=== PATIENT | male | born 1965 | race African-American/Black ===

== ENCOUNTER 2016-12-06 18:29 | Inpatient (IN) ==
[2016-12-06] MEDS ORDERED: methylPREDNISolone SOD SUC 125 MG/2 ML VIAL IV STA (20:14)
[2016-12-06] MEDS ORDERED: cefTRIAXone 1,000 MG in SODIUM CHLORIDE 0.9% 100 ML IV STA (20:14)
[2016-12-06] MEDS ORDERED: FUROSEMIDE 100 MG/10 ML VIAL IV STA (20:14)
[2016-12-06] MEDS ORDERED: ALBUTEROL/IPRATROPIUM 3 ML NEB RESP TX STA (20:14)
[2016-12-06] MEDS ORDERED: PANTOPRAZOLE 40 MG VIAL IV STA (20:17)
[2016-12-06] MEDS ORDERED: ALUM/MAG/SIMETH/LIDO VISC 1:1 30 ML BOTTLE PO STA (20:17)
[2016-12-06] MEDS ORDERED: METOCLOPRAMIDE 10 MG/2 ML VIAL IV STA (20:17)
--- NOTE | 2016-12-06 20:22 | Emergency Department Note ---
Arrival - Arrival Chief Complaint: Shortness of Breath Stated Complaint: SOB/CHEST CRAMP/HX HEART ATTACK/STROKE ED Nursing Triage Note: C/O SOB WITH CHEST PAIN WITH ONSET 3 WEEKS AGO. Mode of Arrival: Ambulatory Limitations: No Limitations Source: Patient Time Seen by Provider: 12/06/16 20:14 - History of Present Illness HPI Narrative: This 50-year-old black male presents with a history of 3 weeks of persistent dyspnea at rest and on exertion associated with retrosternal tightness, and increased reflux symptoms. He denies chills, fever, purulence, diaphoresis, nausea, or vomiting. He does have a history of [place] with stents as well as congestive heart failure. Notable during the last 2 weeks has been increased complaints of orthopnea, PND, pedal edema, and intermittent chest pain. Currently he does not report any pain, just shortness of breath. Of note he does have asthmatic COPD and has been on inhalers in the past. Currently he appears in no medical distress. Onset (ago): week(s) (patient presents 3 weeks post-onset of symptoms.) Consistency: constant Severity: moderate Allergies/Adverse Reactions: Allergies Allergy/AdvReac Type Severity Reaction Status Date / Time No Known Allergies Allergy Unverified 12/06/16 18:41 Home Medications: Home Medications Medication Instructions Recorded Confirmed Type Amlodipine Besylate 5 mg PO DAILY 12/06/16 12/06/16 History Aspirin EC Tab 81 mg PO DAILY 12/06/16 12/06/16 History Carvedilol 25 mg PO DAILY 12/06/16 12/06/16 History Digoxin 250 mcg PO DAILY 12/06/16 12/06/16 History Furosemide Tab [Lasix Tab] 20 mg PO DAILY 12/06/16 12/06/16 History Gabapentin Cap/Tab [Neurontin 600 mg PO BEDTIME 12/06/16 12/06/16 History Cap/Tab] Levothyroxine Tab [Synthroid Tab] 50 mcg PO DAILY@0700 12/06/16 12/06/16 History Lisinopril 10 mg PO DAILY 12/06/16 12/06/16 History Nitroglycerin Sl Tab [Nitrostat] 0.4 mg SL Q5M PRN 12/06/16 12/06/16 History OLANZapine [Olanzapine] 5 mg PO BEDTIME 12/06/16 12/06/16 History OXcarbazepine [Oxcarbazepine] 300 mg PO BID 12/06/16 12/06/16 History Rosuvastatin [Crestor] 20 mg PO BEDTIME 12/06/16 12/06/16 History Warfarin Sodium 4 mg PO DAILY 12/06/16 12/06/16 History glipiZIDE [Glipizide] 10 mg PO BIDAC 12/06/16 12/06/16 History Review of System - Review of System 12 point system: reviewed and no additional remarkable complaints except as stated - Review of System Constitutional: Present: as per HPI Respiratory: Present: as per HPI Cardiovascular: Present: as per HPI Gastrointestinal: Present: as per HPI Medical,Surgical,& Family Hx - Medical History Cardio: History of: Hypertension, [place] Neurology: History of: Cerebrovascular Accident Endocrine: History of: Diabetes Mellitus (NIDDM) Respiratory: History of: COPD - Family History Family History: Reports;: Family Diabetes, Family Hypertension - Social History Smoking Status: Current every day smoker Frequency of Alcohol Use: None Type of Drug Use: None Exam Physical Examination: GENERAL: Well developed, well nourished black male in no acute distress. HEENT: Normocephalic. No trauma. Moist mucous membranes. EOMI. PERRLA. ENT clear NECK: Supple. No adenopathy. CARDIAC: Regular. No murmurs. Heart rate 76 CHEST: Clear to auscultation. No respiratory distress. O2 sat 92% ABDOMEN: Soft. Midepigastric tenderness. Active bowel sounds. EXTREMITIES: No trauma. Normal ROM. No pedal edema. SKIN: No diaphoresis. No rash. NEURO: Alert. Neuro intact No focal deficits. Vital Signs: Vital Signs Temperature 98.2 F 12/06/16 18:41 Pulse Rate 76 12/06/16 18:41 Respiratory Rate 20 12/06/16 20:03 Blood Pressure 178/94 12/06/16 18:41 O2 Sat by Pulse Oximetry 92 L 12/06/16 18:41 Course - Reevaluation(s) Reevaluation #1: I have advised the patient the need for hospitalization due to his abnormal cardiac enzymes and congestive failure - Consultations Consultation #1: Discussed with Dr. Seals, hospitalist, who will admit for further evaluation and treatment. Results - Labs CBC & BMP: 12/06/16 20:17 12/06/16 20:17 Labs: I've reviewed the laboratory noted the mild azotemia, abnormal troponin, abnormal total CPK, and greatly elevated BNP. - Impressions EKG sinus rhythm at 84, normal PA interval and QRS duration. Left atrial enlargement with right axis deviation, anterolateral ischemic STs. No acute injury pattern noted. - Diagnostic Findings Procedure: Chest x-ray: image reviewed by me, report reviewed by me (consistent with COPD) Disposition Clinical Impression: abnormal cardiac enzymes, congestive heart failure, COPD Case discussed with: patient Disposition: Still a Patient Condition: Guarded Time of Disposition: 21:53
[2016-12-06 20:27] LABS: Basophils % 0.3 % (0.0-0.8); Eosinophils # 0.7 10*3/uL (0.0-0.87); Hematocrit 50.5 VOL% (42.0-52.0); Immature Granulocytes % 0.1 %; Immature Granulocytes Absolute 0.01 #; Lymphocytes # 2.4 10*3/uL (1.4-4.0); Lymphocytes % 36.1 % (21.2-54.2); Mean Corpuscular HGB Conc 31.7 GM/DL (32-36); Mean Corpuscular Hemoglobin 30 PG (27-34); Mean Platelet Volume 9.6 FL (9.6-12.0); Monocytes # 0.5 10*3/uL (0.11-0.8); Monocytes % 7.6 % (1.7-12.7); Neutrophils % 44.9 % (38.7-73.9); Platelet Count 216 10*3/uL (130-400); Red Blood Count 5.26 10*6/uL (3.8-5.5); Red Cell Distribution Width 13.2 % (9.3-17.3); White Blood Count 6.7 10*3/uL (4.5-13.71)
[2016-12-06] MEDS ORDERED: PANTOPRAZOLE 40 MG VIAL IV ONE (20:29)
[2016-12-06] MEDS ORDERED: METOCLOPRAMIDE 10 MG/2 ML VIAL ONE (20:29)
[2016-12-06] MEDS ORDERED: SODIUM CHLORIDE 0.9% 100 ML IV ONE (20:30)
[2016-12-06] MEDS ORDERED: FUROSEMIDE 100 MG/10 ML VIAL ONE (20:30)
[2016-12-06] MEDS ORDERED: cefTRIAXone 1,000 MG VIAL ONE (20:30)
[2016-12-06] MEDS ORDERED: methylPREDNISolone SOD SUC 125 MG/2 ML VIAL ONE (20:30)
[2016-12-06] MEDS ORDERED: ALUM/MAG/SIMETH/LIDO VISC 1:1 30 ML BOTTLE PO ONE (20:30)
[2016-12-06 20:37] LABS: INR 1.1; PT Patient Result 11.6 SECS
[2016-12-06 20:45] LABS: Alanine Aminotransferase 21 U/L (16-61); Albumin 2.3 G/DL (3.4-5.0); Alkaline Phosphatase 119 U/L (45-117); Aspartate Amino Transferase 24 U/L (0-37); Bilirubin,Total < 0.39 MG/DL (0.2-1.0)
[2016-12-06 20:46] LABS: Blood Urea Nitrogen 21 MG/DL (7-18); Glucose 140 MG/DL (74-106); Potassium 3.9 MMOL/L (3.5-5.1); Sodium 143 MMOL/L (136-145); Troponin I Only 0.106 NG/ML (0.00-0.045)
[2016-12-06 20:50] LABS: Eosinophils 8 % (0-10); Lymphocytes 39 % (20-55); Segmented Neutrophils 45 % (50-85); Total Cells Counted 100
[2016-12-06 20:51] LABS: Platelet Estimate Normal
--- NOTE | 2016-12-06 21:09 | XRay Report ---
XR chest 1V portable Indication: Shortness of breath. Chest one view: No comparison. Heart size is normal. Mediastinal contours unremarkable. Scattered calcified granulomata are present. Diffuse interstitial prominence of the lungs noted, likely airways disease. Somewhat asymmetric hazy density right lung base appears present, especially when compared to the left. Impression: Underlying airways disease. Early right basilar pneumonia suspect but not definitive. Short-term followup recommended. PROCEDURE INTERPRETED AT [facility] DEPARTMENT OF RADIOLOGY Final Report Signed by: Dante Santos M.D.
[2016-12-06 22:02] LABS: Apearance,Urine CLEAR (Clear); Bilirubin,Urine Negative (Negative); Blood, Urine Small mg/dL (Negative); Glucose,Urine (UA) 50 mg/dL (Negative); Granular Casts,Urine 1 /LPF (0-1); Hyaline Casts,Urine 6 /LPF (0-3); Ketones,Urine Negative (Negative); Mucus,Urine Occasional /LPF (Occasional); Nitrite,Urine Negative (Negative); Protein,Urine >=500 MG/DL; RBC,Urine 2 /HPF (0-4); Urine Color Yellow (Yellow); Urine Specific Gravity 1.014 (1.001-1.035); WBC,Urine <1 /HPF (0-6)
[2016-12-06 22:05] LABS: Barbiturates Screen,Urine Negative (Negative); Benzodiazepines Screen,Urine Negative (Negative); Cannabinoid Screen,Urine Negative (Negative); Opiate Screen,Urine Negative (Negative); Phencyclidine Screen,Urine Negative (Negative)
--- NOTE | 2016-12-06 22:41 | Hospitalist History & Physical ---
Assessment and Plan (1) Chest pain Status: Acute Current Visit: Yes (2) Acute exacerbation of congestive heart failure Status: Acute Current Visit: Yes (3) History of peripheral vascular disease Status: Acute Current Visit: Yes (4) History of COPD Status: Acute Current Visit: Yes (5) Diabetes Status: Acute Current Visit: Yes (6) History of [place] (myocardial infarction) Status: Acute Current Visit: Yes (7) History of stroke Status: Acute Current Visit: Yes (8) mild bump in troponins Status: Acute Assessment and plan: Plan for this patient #1 admit the patient our service #2 telemetry monitoring #3 serial cardiac enzymes #4 continue home meds as appropriate #5 2-D echo #6 cardiology consult #7 diuresis #8 monitor kidney function Current Visit: Yes History of Present Illness Chief complaint: Shortness of breath and chest tightness History of present illness: Mr. Godwin is a 51 year old male past medical history significant for congestive heart failure, coronary artery disease, [place] about 10 years ago, stroke , hypertension, diabetes, peripheral vascular disease, and COPD he's been experiencing shortness of breath and chest tightness time 3 weeks. He noticed that this shortness of breath and chest tightness comes on when he exerts himself. Says when just gives out on him. Patient also noted some radiation of the pain to his neck. And he's had some numbness sensation bilaterally in his fingertips when this comes on. Patient started noticing increased swelling in his lower extremities. Patient had a sense that something was going to happen to him so he got his friend bring him up to the emergency room. Patient doesn't really know what's going on with him thought he might be experiencing indigestion and he wanted to be checked out. He had a mild bump in his troponin and elevated BNP and I was consulted to admit him Home Medications Medication Instructions Recorded Confirmed Type Amlodipine Besylate 5 mg PO DAILY 12/06/16 12/06/16 History Aspirin EC Tab 81 mg PO DAILY 12/06/16 12/06/16 History Carvedilol 25 mg PO DAILY 12/06/16 12/06/16 History Digoxin 250 mcg PO DAILY 12/06/16 12/06/16 History Furosemide Tab [Lasix Tab] 20 mg PO DAILY 12/06/16 12/06/16 History Gabapentin Cap/Tab [Neurontin 600 mg PO BEDTIME 12/06/16 12/06/16 History Cap/Tab] Levothyroxine Tab [Synthroid Tab] 50 mcg PO DAILY@0700 12/06/16 12/06/16 History Lisinopril 10 mg PO DAILY 12/06/16 12/06/16 History Nitroglycerin Sl Tab [Nitrostat] 0.4 mg SL Q5M PRN 12/06/16 12/06/16 History OLANZapine [Olanzapine] 5 mg PO BEDTIME 12/06/16 12/06/16 History OXcarbazepine [Oxcarbazepine] 300 mg PO BID 12/06/16 12/06/16 History Rosuvastatin [Crestor] 20 mg PO BEDTIME 12/06/16 12/06/16 History Warfarin Sodium 4 mg PO DAILY 12/06/16 12/06/16 History glipiZIDE [Glipizide] 10 mg PO BIDAC 12/06/16 12/06/16 History Allergies Allergy/AdvReac Type Severity Reaction Status Date / Time No Known Allergies Allergy Unverified 12/06/16 18:41 Medical,Surgical,& Family Hx - Medical History Cardio: History of: CHF, Hypertension, [place] Neurology: History of: Cerebrovascular Accident Endocrine: History of: Diabetes Mellitus (NIDDM) Respiratory: History of: COPD - Surgical History Additional Surgical History: Patient's had some unspecified vein surgery he's had stents placed and he had a cyst removed from his Botox - Family History Family History: Reports;: Family Diabetes, Family Hypertension - Social History Smoking Status: Current every day smoker Frequency of Alcohol Use: None Type of Drug Use: None 12 point system: reviewed and no additional remarkable complaints except as stated Exam - Constitutional Vitals: Period Temp Pulse Resp BP Sys/[place] Pulse Ox Last 24 Hr 98.2 F 76 18-20 178/94 92 General appearance: over weight - Head Head exam: Present: normal inspection - Eye Eye exam: Present: EOMI Pupils: Present: KATIE - ENT ENT exam: Present: other (poor dentition) - Respiratory Respiratory exam: Present: rales (mild) - Cardiovascular Cardiovascular exam: Present: regular rate and rhythm - GI/Abdominal GI/Abdominal exam: Present: normal bowel sounds - Extremities Exam Extremities exam: Present: edema - Back Exam Back exam: Present: normal inspection - Neurological Exam Neurological exam: Present: alert, oriented X3 - Psychiatric Psychiatric exam: Present: normal affect, normal mood - Skin Skin exam: Present: normal color Results - Labs CBC & BMP: 12/06/16 20:17 12/06/16 20:17
[2016-12-06] MEDS ORDERED: GLUCAGON 1 MG VIAL IM PRN (23:03)
[2016-12-06] MEDS ORDERED: MAGNESIUM SULF RIDER 4 GM in PREMIX 1 EACH IV PRN (23:03)
[2016-12-06] MEDS ORDERED: DEXTROSE 50% 25 GM/50 ML VIAL IV PRN (23:03)
[2016-12-06] MEDS ORDERED: MAGNESIUM SULF RIDER 2 GM in PREMIX 1 EACH IV PRN (23:03)
[2016-12-06] MEDS ORDERED: ALBUTEROL/IPRATROPIUM 3 ML NEB RESP TX PRN (23:03)
[2016-12-06] MEDS ORDERED: ONDANSETRON 4 MG/2 ML VIAL IV PRN (23:03)
[2016-12-06] MEDS ORDERED: INSULIN REGULAR 100 UNIT/ML SUBCUT ONE (23:03)
[2016-12-06] MEDS ORDERED: POTASSIUM CHLORIDE RIDER 10 MEQ in PREMIX 1 EACH IV PRN (23:03)
[2016-12-06] MEDS ORDERED: AZITHROMYCIN INJ 500 MG in SODIUM CHLORIDE 0.9% 250 ML IV SCH (23:30)
[2016-12-07] MEDS: ENOXAPARIN 40 MG/0.4 ML SYRINGE SUBCUT SCH (01:12)
[2016-12-07] MEDS: AZITHROMYCIN INJ 500 MG in SODIUM CHLORIDE 0.9% 250 ML IV SCH (01:13)
[2016-12-07] MEDS: NITROGLYCERIN 2% OINT 1 INCH/GM PACK TOP SCH ×4 (01:13→18:12)
[2016-12-07 02:25] LABS: Basophils % 0.3 % (0.0-0.8); Eosinophils % 0.5 % (0.00-10.9); Hematocrit 47.9 VOL% (42.0-52.0); Hemoglobin 15.4 GM/DL (14.0-18.0); Immature Granulocytes % 0.3 %; Immature Granulocytes Absolute 0.02 #; Lymphocytes # 0.7 10*3/uL (1.4-4.0); Lymphocytes % 11.3 % (21.2-54.2); Mean Corpuscular HGB Conc 32.2 GM/DL (32-36); Mean Corpuscular Hemoglobin 30 PG (27-34); Mean Corpuscular Volume 94.3 FL (87-102); Mean Platelet Volume 9.9 FL (9.6-12.0); Monocytes # 0.1 10*3/uL (0.11-0.8); Monocytes % 1.4 % (1.7-12.7); Neutrophils % 86.2 % (38.7-73.9); Platelet Count 197 10*3/uL (130-400); Red Blood Count 5.08 10*6/uL (3.8-5.5); White Blood Count 5.8 10*3/uL (4.5-13.71)
[2016-12-07 02:45] LABS: INR 1.1; PT Patient Result 12.2 SECS
[2016-12-07 03:03] LABS: Calcium 7.7 MG/DL (8.5-10.1); Osmolality,Calculated 294.8 MOS/KG (273-304); Risk Ratio 3.64; VLDL CHOLESTEROL 21.4 MG/DL
[2016-12-07 03:28] LABS: Troponin I Only 0.089 NG/ML (0.00-0.045)
--- NOTE | 2016-12-07 06:02 | EKG Report ---
Stationary ECG Study [facility] ER Test Date: 12/06/2016 6:43:52 PM Pat Name: LIYAH CRUZ Department: Room: 295 Gender: M Steeple Jack: Gopi : 1965 Requested by: Todd Chandra Order Number: [id number] Reading MD: ABDIRIZAK SAUNDERS Intervals [place] Rate: 84 P: 87 NE: 181 QRS: 103 QRSD: 100 T: 78 QT: 333 QTc: 374 Interpretive Statements SINUS RHYTHM POSSIBLE LEFT ATRIAL ENLARGEMENT ABNORMAL RIGHT AXIS DEVIATION Electronically Signed On 12-07-16 12:32:42 STITCHER SET UP OPERATOR AUTOMATIC by ABDIRIZAK SAUNDERS [email or web address]
--- NOTE | 2016-12-07 07:51 | EKG Report ---
Stationary ECG Study [facility] Test Date: 12/07/2016 7:49:36 AM Pat Name: LIYAH CRUZ Department: Room: 295 Gender: M Plumber Cub: : 1965 Requested by: Dante Taveras Order Number: [id number] Reading MD: ABDIRIZAK SAUNDERS Intervals [place] Rate: 86 P: 76 [place]: 202 QRS: 110 QRSD: 104 T: 13 QT: 386 QTc: 429 Interpretive Statements SINUS RHYTHM POSSIBLE LEFT ATRIAL ENLARGEMENT MARKED RIGHT AXIS DEVIATION PATTERN CONSISTENT WITH PULMONARY DISEASE Electronically Signed On 12-07-16 12:37:27 COMPLIANCE EXAMINER by ABDIRIZAK SAUNDERS [email or web address]
[2016-12-07 08:13] LABS: Troponin I Only 0.076 NG/ML (0.00-0.045)
--- NOTE | 2016-12-07 08:40 | Cardiology Consult Note ---
<Karin Márquez E - Last Filed: 12/07/16 08:23> Assessment and Plan - Time spent with patient Time spent with patient: Greater than 30 minutes (1) SOB (shortness of breath) Status: Acute Assessment and plan: See plan of care Current Visit: Yes (2) Chest pain Status: Acute Assessment and plan: See plan of care Current Visit: Yes (3) Hypertension Status: Chronic Assessment and plan: See plan of care Current Visit: Yes (4) Dyslipidemia Status: Chronic Assessment and plan: See plan of care Current Visit: Yes (5) CAD (coronary artery disease) Status: Chronic Assessment and plan: See plan of care listed above Current Visit: Yes (6) Abdominal pulsatile mass Status: Acute Assessment and plan: See plan of care listed above Current Visit: Yes (7) Carotid bruit Status: Acute Assessment and plan: See plan of care listed above Current Visit: Yes Qualifiers: Laterality: bilateral Qualified Code(s): R09.89 - Other specified symptoms and signs involving the circulatory and respiratory systems (8) Tobacco abuse Status: Chronic Assessment and plan: See plan of care listed above Current Visit: Yes (9) Pneumonia Status: Acute Assessment and plan: See plan of care listed above Current Visit: Yes (10) Cardiac enzymes elevated Status: Acute Assessment and plan: See plan of care listed above Current Visit: Yes (11) Diabetes Status: Chronic Assessment and plan: See plan of care listed above Current Visit: Yes (12) History of stroke Status: Chronic Assessment and plan: See plan of care listed above Current Visit: Yes History of Present Illness - Data of Consult Patient: new to practice Consult date: 12/07/16 Requesting Physician: Marysol Craig Primary care physician: Niki Georges - Consult Narrative Reason for consult: chest tightness, SOB, elevated trop History of present illness: Mr. Godwin is a 51 year old AA male who is not followed by cardiology. Risk factors include: known coronary artery disease, hypertension, dyslipidemia, diabetes, PVD, obesity, sedentary lifestyle, tobaccoism. He tells me in a myocardial infarction approximately 10 years ago requiring balloon angioplasty. He tells me he has been told in the past he has a weak heart. He does not see cardiology routinely. He previously saw a heater operator [place] of state but has not followed up in many years. Over the past week, patient's shortness of breath has worsened at rest and with exertion. He has noticed a dry hacking cough and denies fevers or chills. When he exerts himself he feels a tightness laterally across his chest and this started approximately 48 hours ago. He is unable to rate the tightness on a scale of 1-10. Rest relieves the tightness. There is no nausea or vomiting associated with this discomfort. He is currently chest pain-free. He's been diagnosed with right lobe pneumonia. This is being addressed by his primary care provider. His cardiac biomarkers reveal elevation of troponin at 0.106, CPK and MB are mildly elevated as well. He is chest pain-free. EKG is abnormal though does not reflect STEMI. Patient reports he takes Coumadin and he believes is for an irregular heart rhythm. ANDRE Georges monitors his INR. It does not sound as if he has this checked routinely however. INR 1.1 today. Approximately 7 or 8 years ago he had left carotid endarterectomy. He suffered a stroke prior to CEA. He's also had some type of a peripheral vascular surgery to his lower extremities in the past for suspected PVD. He has recurrent claudication at 60 feet. Right lower extremity worse than left lower extremity. He also has renal insufficiency. Creatinine on admission was 2.2 and this morning it is 2.0. He tells me he did have some type of damage to the right kidney in years past. ASSESSMENT/PLAN: 1. SOB - shortness of breath is multifactorial in nature. Certainly, patient may be short of breath from his suspected pneumonia. His cardiac biomarkers are elevated in a fashion that this may represent a NSTEMI, also contributing to shortness of breath. He may have a cardiomyopathy. Echocardiogram is been ordered. Upon admission, he tells me he was orthopneic and this has dramatically improved overnight. He admits to frequent diuresis since admission. He is uncertain if he could lay flat for 4-6 hours at this time and will keep diuresing. 2. CHEST PAIN - chest tightness occurs with exertion and is relieved with rest. Patient has a history of known coronary artery disease. Stay be an anginal equivalent 3. ELEVATED CARDIAC BIOMARKERS - Suspicious for NSTEMI. Abnormal EKG noted. Has received ASA, Lovenox, betablockers. Also receiving nitroglycerine paste routinely. 4. HYPERTENSION - suboptimally controlled at this time. Will adjust medications accordingly. 5. DYSLIPIDEMIA - continue lipid-lowering agent. Fasting lipid profile. 6. CAD - history of coronary artery disease and possibly UT approximately 10 years ago. Sounds as if he received POBA Without stenting per patient report 7. PVD - decrease pulses BLE, history of BLE intervention in the past 8. ABDOMINAL PULSATILE MASS - US to eval 9. SUSPECTED PNEUMONIA - currently on appropriate antibiotics 10. CKD - Class III. Will add mucomyst to med regimen in anticipation of possible LHC 11. TOBACCOISM - greater than 5 minutes was spent discussing the merits of tobacco cessation 12. POSSIBLE HISTORY OF ATRIAL FLUTTER - patient was taking Coumadin that his INR was 1.1. Upon interview, does not sound as if he is also routinely with ANDRE Georges for monthly INRs. We'll continue to monitor his rhythm while hospitalized. 13. CAROTID BRUIT, LEFT - US to evaluate CC: Marysol Craig MD - Home Medications and Allergies Home Medications: Home Medications Medication Instructions Recorded Confirmed Type Amlodipine Besylate 5 mg PO DAILY 12/06/16 12/06/16 History Aspirin EC Tab 81 mg PO DAILY 12/06/16 12/06/16 History Carvedilol 25 mg PO DAILY 12/06/16 12/06/16 History Digoxin 250 mcg PO DAILY 12/06/16 12/06/16 History Furosemide Tab [Lasix Tab] 20 mg PO DAILY 12/06/16 12/06/16 History Gabapentin Cap/Tab [Neurontin 600 mg PO BEDTIME 12/06/16 12/06/16 History Cap/Tab] Levothyroxine Tab [Synthroid Tab] 50 mcg PO DAILY@0700 12/06/16 12/06/16 History Lisinopril 10 mg PO DAILY 12/06/16 12/06/16 History Nitroglycerin Sl Tab [Nitrostat] 0.4 mg SL Q5M PRN 12/06/16 12/06/16 History OLANZapine [Olanzapine] 5 mg PO BEDTIME 12/06/16 12/06/16 History OXcarbazepine [Oxcarbazepine] 300 mg PO BID 12/06/16 12/06/16 History Rosuvastatin [Crestor] 20 mg PO BEDTIME 12/06/16 12/06/16 History Warfarin Sodium 4 mg PO DAILY 12/06/16 12/06/16 History glipiZIDE [Glipizide] 10 mg PO BIDAC 12/06/16 12/06/16 History Insulin Glargine,Hum.[email or web address] See Protocol 12/07/16 History [Lantus SoloStar] Tiotropium Inhalation [Spiriva SUBCUT 12/07/16 History Handihaler] Allergies/Adverse Reactions: Allergies Allergy/AdvReac Type Severity Reaction Status Date / Time No Known Allergies Allergy Unverified 12/06/16 18:41 Review of systems: REVIEW OF SYSTEMS: - Constitutional Constitutional: Present: Fatigue. Absent: syncope, anorexia, night sweats - EENT Eyes: Absent: blurry vision, loss of vision, diplopia Ears: Absent: decreased hearing, ear pain, ear discharge - Cardiovascular Cardiovascular: Present: chest tightness with exertion, dyspnea on exertion and at rest. Frequent bilateral lower extremity edema, mild. Occasional palpitations. Claudication bilateral lower extremities and 60 feet with right lower extremity be more severe than left. - Respiratory Respiratory: Present: SANDERSON, cough. Absent: wheezing, hemoptysis, change in phlegm color - Gastrointestinal Gastrointestinal: Denies constipation. Absent: abdominal pain, hematemesis, hematochezia, melena, change in bowel habits, nausea - Genitourinary Genitourinary: Absent: difficulty urinating, dysuria, urinary hesitancy, flank pain - Musculoskeletal Musculoskeletal: Present: back pain Absent: joint swelling, muscle cramps, muscle weakness - Neurological Neurological: Present: normal gait without frequent falls. Absent: dizziness, hemiparesis - Psychiatric Psychiatric: Absent: anxiety, depression, difficulty concentrating - Endocrine Endocrine: Present: fatigue. Absent: cold intolerance, heat intolerance, polyuria, polyphagia, polydipsia - Hematologic/Lymphatic Hematologic/Lymphatic: Present: easy bruising. Absent: easy bleeding -Integumentary Integumentary: Absent: lesions, rashes, skin breakdown Medical,Surgical,& Family Hx - Medical History Cardio: History of: CHF, CAD, Hypertension, UT, PVD Neurology: History of: Cerebrovascular Accident Endocrine: History of: Diabetes Mellitus (NIDDM) Respiratory: History of: COPD - Surgical History HEENT Surgeries: Surgical HX of: Carotid Endarterectomy (left) - Family History Family History: Reports;: Family Diabetes, Family Hypertension - Social History Smoking Status: Current every day smoker Frequency of Alcohol Use: None Type of Drug Use: None Physical Examination Vital Signs Temp Pulse Resp BP Pulse Ox 98.2 F 76 18 178/94 92 L 12/06/16 18:41 12/06/16 18:41 12/06/16 18:41 12/06/16 18:41 12/06/16 18:41 General: Appears well with no apparent distress. Pleasant and cooperative. Appears comfortable. HEENT: PERRL, normocephalic, atraumatic. Mucous membranes moist. No jaundice noted. Conjunctiva moist and clear, sclerae anicteric Neck: No JVD/HJR, no thyromegaly or lymphadenopathy noted. Bilateral carotid bruits. Left carotid endarterectomy incision. Cardiac: Regular rate and rhythm. Soft II/ HSM heard best at 5ICS left. Lungs: Inspiratory crackles noted posteriorly in bases, improve but persist with cough. No use of accessory muscle use to assist the respiratory pattern. Using oxygen intermittently. Abdomen: Soft, bowel sounds normoactive. Nontender and nondistended. Abdominal pulsation bruit. Musculoskeletal: No fluid collection. Decreased range of motion is noted. Extremities: No clubbing, cyanosis noted. Trace ankle edema bilaterally. Difficult to palpate pulses of lower extremities, feet warm. Capillary refill less than 3 seconds. Skin: No unusual lesions or rashes. No skin breakdown appreciated. Neuro: Awake, alert and oriented 3. Moves all extremities well without hemiparesis or paralysis. No essential tremor is appreciated. Result/EKG - Labs CBC & BMP: 12/07/16 02:07 12/07/16 02:07 Lab Results: I have reviewed the past 24 hour labs Labs: Laboratory Results - last 24 hr 12/07/16 12/07/16 12/07/16 02:07 02:07 02:07 WBC 5.8 RBC 5.08 Hgb 15.4 Hct 47.9 MCV 94.3 MCH 30 MCHC 32.2 RDW 13.0 Plt Count 197 MPV 9.9 Neut % (Auto) 86.2 H Lymph % (Auto) 11.3 L Estill % (Auto) 1.4 L Eos % (Auto) 0.5 Baso % (Auto) 0.3 Neut # (Auto) 5.0 Lymph # (Auto) 0.7 L [place] # (Auto) 0.1 L Eos # (Auto) 0.0 Baso # (Auto) 0.0 Immature Gran % 0.3 Nucleated RBC % 0.0 Immature Gran # 0.02 Nucleated RBCs # 0.00 INR 1.1 PT Patient/Control Mix 12.2 Sodium Potassium Chloride Carbon Dioxide Anion Gap BUN Creatinine GFR Calculation BUN/Creatinine Ratio Glucose POC Glucose Calculated Osmolality Calcium Total Creatine Kinase 297 CK-MB (CK-2) 3.7 H Troponin I 0.089 H Triglycerides Cholesterol LDL Cholesterol VLDL Cholesterol HDL Cholesterol Heart Disease Risk Ratio 12/07/16 12/07/16 12/07/16 02:07 07:16 07:22 WBC RBC Hgb Hct MCV MCH MCHC RDW Plt Count MPV Neut % (Auto) Lymph % (Auto) Estill % (Auto) Eos % (Auto) Baso % (Auto) Neut # (Auto) Lymph # (Auto) Est[place] # (Auto) Eos # (Auto) Baso # (Auto) Immature Gran % Nucleated RBC % Immature Gran # Nucleated RBCs # INR PT Patient/Control Mix Sodium 144 Potassium 4.0 Chloride 104 Carbon Dioxide 30 Anion Gap 14.0 BUN 20 H Creatinine 2.00 H GFR Calculation 50 BUN/Creatinine Ratio 10.00 Glucose 204 H POC Glucose 208 H Calculated Osmolality 294.8 Calcium 7.7 L Total Creatine Kinase 292 CK-MB (CK-2) 3.9 H Troponin I 0.076 H Triglycerides 107 Cholesterol 182 LDL Cholesterol 105.0 VLDL Cholesterol 21.4 HDL Cholesterol 50 Heart Disease Risk Ratio 3.64 - Diagnostic Findings Procedure: Chest x-ray: report reviewed by nh - EKG EKG results: interpreted by nh EKG shows: sinus rhythm <Julian Jara - Last Filed: 12/07/16 09:18> History of Present Illness - Consult Narrative History of present illness: Patient examined, chart and lab data reviewed. 51-year-old man admitted with CHF and right lower lobe pneumonia. He has been short of breath for 3 weeks. Status post angioplasty 10 years ago at [facility]. He has had no nuclear stress test since that time. Multiple risk factors for progressive CAD Smoker Chronic renal insufficiency creatinine 2.0 Plan Carotid duplex echo Doppler and abdominal sonogram Pulmonary toilet IV antibiotics and IV Lasix Heart cath when able. CC: Marysol Craig MD Physical Examination Vital Signs Temp Pulse Resp BP Pulse Ox 98.2 F 76 18 178/94 92 L 12/06/16 18:41 12/06/16 18:41 12/06/16 18:41 12/06/16 18:41 12/06/16 18:41 Result/EKG - Labs CBC & BMP: 12/07/16 02:07 12/07/16 02:07 Labs: Laboratory Results - last 24 hr 12/07/16 12/07/16 12/07/16 02:07 02:07 02:07 WBC 5.8 RBC 5.08 Hgb 15.4 Hct 47.9 MCV 94.3 MCH 30 MCHC 32.2 RDW 13.0 Plt Count 197 MPV 9.9 Neut % (Auto) 86.2 H Lymph % (Auto) 11.3 L Est[place] % (Auto) 1.4 L Eos % (Auto) 0.5 Baso % (Auto) 0.3 Neut # (Auto) 5.0 Lymph # (Auto) 0.7 L [place] # (Auto) 0.1 L Eos # (Auto) 0.0 Baso # (Auto) 0.0 Immature Gran % 0.3 Nucleated RBC % 0.0 Immature Gran # 0.02 Nucleated RBCs # 0.00 INR 1.1 PT Patient/Control Mix 12.2 Sodium Potassium Chloride Carbon Dioxide Anion Gap BUN Creatinine GFR Calculation BUN/Creatinine Ratio Glucose POC Glucose Calculated Osmolality Calcium Total Creatine Kinase 297 CK-MB (CK-2) 3.7 H Troponin I 0.089 H Triglycerides Cholesterol LDL Cholesterol VLDL Cholesterol HDL Cholesterol Heart Disease Risk Ratio 12/07/16 12/07/16 12/07/16 02:07 07:16 07:22 WBC RBC Hgb Hct MCV MCH MCHC RDW Plt Count MPV Neut % (Auto) Lymph % (Auto) Estill % (Auto) Eos % (Auto) Baso % (Auto) Neut # (Auto) Lymph # (Auto) [place] # (Auto) Eos # (Auto) Baso # (Auto) Immature Gran % Nucleated RBC % Immature Gran # Nucleated RBCs # INR PT Patient/Control Mix Sodium 144 Potassium 4.0 Chloride 104 Carbon Dioxide 30 Anion Gap 14.0 BUN 20 H Creatinine 2.00 H GFR Calculation 50 BUN/Creatinine Ratio 10.00 Glucose 204 H POC Glucose 208 H Calculated Osmolality 294.8 Calcium 7.7 L Total Creatine Kinase 292 CK-MB (CK-2) 3.9 H Troponin I 0.076 H Triglycerides 107 Cholesterol 182 LDL Cholesterol 105.0 VLDL Cholesterol 21.4 HDL Cholesterol 50 Heart Disease Risk Ratio 3.64
[2016-12-07] MEDS: FUROSEMIDE 40 MG/4 ML VIAL IV SCH ×2 (08:48→16:46)
[2016-12-07] MEDS ORDERED: ASPIRIN EC 325 MG TABLET PO SCH (09:00)
[2016-12-07] MEDS: INSULIN REGULAR 100 UNIT/ML SUBCUT SCH ×4 (10:18→21:56)
[2016-12-07] MEDS: DIGOXIN 0.25 MG TABLET PO SCH (10:19)
[2016-12-07] MEDS: ACETYLCYSTEINE 600 MG CAPSULE PO SCH ×2 (10:19→21:54)
[2016-12-07] MEDS: OXcarbazepine 300 MG TABLET PO SCH ×2 (10:20→21:54)
[2016-12-07] MEDS: ASPIRIN EC 81 MG TABLET PO SCH (10:20)
[2016-12-07] MEDS: amLODIPine 5 MG TABLET PO SCH (10:20)
[2016-12-07] MEDS: LEVOTHYROXINE 50 MCG TABLET PO SCH (10:20)
[2016-12-07] MEDS: LISINOPRIL 10 MG TABLET PO SCH (10:20)
[2016-12-07] MEDS: CARVEDILOL 25 MG TABLET PO SCH (10:20)
--- NOTE | 2016-12-07 11:35 | Ultrasound Report ---
Referring physician: Marysol Meehan MD Exam: Carotid ultrasound Date: December 07, 2016 Comparison: None Reason: Bilateral carotid bruits and history of left endarterectomy Technique: Duplex scan of the carotid arteries performed using B-Mode/grayscale imaging and Doppler spectral analysis and color flow. Ultrasound images were captured and stored. Findings: There is mild heterogeneous plaque at the carotid bifurcations. The right ICA measures 0.56 cm in diameter, and the left ICA measures 0.40 cm in diameter. The peak systolic velocities are as follows: Right CCA: 73 cm/s Right proximal ICA: 47 cm/s Right distal ICA: 76 cm/s Right ECA: 93 cm/s Left CCA: 79 cm/s Left proximal ICA: 56 cm/s Left distal ICA: 61 cm/s Left ECA: 144 cm/s The peak systolic ICA/CCA velocity ratios are as follows: 1.0 on the right and 0.8 on the left. Antegrade flow is present within both vertebral arteries. Impression: 1. Less than 50% stenosis of both cervical internal carotid arteries. 2. The Society of Radiologists in Ultrasound consensus conference criteria was used. The Ultrasound images were captured and stored. PROCEDURE INTERPRETED AT [facility] DEPARTMENT OF RADIOLOGY Final Report Signed by: Dr. Chad Calloway
--- NOTE | 2016-12-07 11:48 | Ultrasound Report ---
Referring Physician: Karin Márquez Exam: US abdomen Date: December 07, 2016 Reason: Abdominal pulsatile mass Comparison: None Technique: Grayscale ultrasound images of the abdomen were obtained. Ultrasound images were captured and stored. Findings: The liver measures 15.6 cm in length. No suspicious hepatic lesion is identified. No gallstones are seen. No abnormal gallbladder wall thickening or pericholecystic fluid is identified. The inspector eyeglass reports a negative sonographic Vargas's sign. The common bile duct is upper normal in size, measuring 0.3-0.5 cm in diameter. The visualized pancreas is unremarkable. The right kidney measures 11.6 x 5.5 x 5.2 cm, and the left kidney measures 10.8 x 6.5 x 5.7 cm. No hydronephrosis or suspicious renal lesion is identified. The spleen measures 6.4 x 6.1 x 5.3 cm. Splenic volume is approximately 300 cc. No ascites is seen, and the visualized IVC appears patent. The visualized abdominal aorta is normal in size, measuring up to 2.2 cm. The main portal vein appears patent. Impression: No acute abdominal process is identified. PROCEDURE INTERPRETED AT [facility] DEPARTMENT OF RADIOLOGY Final Report Signed by: Dr. Chad Calloway
--- NOTE | 2016-12-07 15:42 | ECHO Report ---
Bulmaro Godwin Exam Date: 12/07/2016 08:48 Referring Physician: Technologist: Macy Hutchins RDCS Age: 51 Ht (in): Wt (lb): Gender: M Exam Location: [facility] Echo Indications: Dyspnea, unspecified, Essential (primary) hypertension, Chest pain, unspecified, Chronic kidney disease, stage 3 (moderate), Dyslipidemia, CAD, Nicotine dependence, unspecified, uncomplicated, Pneumonia, Elevated cardiac enzymes, hx CVA, Diabetes BP: / HR: Rhythm: Sinus Technical Quality: Good IMPRESSIONS EF 30 %, moderate global hypokinesis. Grade I/IV diastolic dysfunction (abnormal relaxation filling pattern), normal to mildly elevated filling pressures. The right ventricle is normal in size and function. The right atrium is mildly enlarged. The left atrium is mildly enlarged. Mildly thickened mitral valve. Trace mitral valve regurgitation. Aortic valve sclerosis. No aortic valve regurgitation. Severe tricuspid valve regurgitation. PAP 60 mmHg. Normal pericardium without effusion. Normal ascending aorta dimension. MEASUREMENTS (Male / Female) Normal Values 2D ECHO LV Diastolic Diameter PLAX 5.4 cm 4.2 - 5.9 / 3.9 - 5.3 cm LV Systolic Diameter PLAX 4.6 cm LV Fractional Shortening PLAX 14.7 % IVS Diastolic Thickness 1.2 cm 0.6 - 1.0 / 0.6 - 0.9 cm LVPW Diastolic Thickness 1.2 cm 0.6 - 1.0 / 0.6 - 0.9 cm RV Internal Dim ED PLAX 3.7 cm Aortic Root Diameter 2.8 cm LA Systolic Diameter LX 4.6 cm 3.0 - 4.0 / 2.7 - 3.8 cm DOPPLER TR Peak Velocity 343.0 cm/s TR Peak Gradient 47.1 mmHg FINDINGS Left Ventricle EF 30 %, moderate global hypokinesis.Grade I/IV diastolic dysfunction (abnormal relaxation filling pattern), normal to mildly elevated filling pressures. Right Ventricle The right ventricle is normal in size and function. Right Atrium The right atrium is mildly enlarged. Left Atrium The left atrium is mildly enlarged. Mitral Valve Mildly thickened mitral valve. Trace mitral valve regurgitation. Aortic Valve Aortic valve sclerosis. No aortic valve regurgitation. Tricuspid Valve Morphologically normal tricuspid valve. Severe tricuspid valve regurgitation. PAP 60 mmHg. Pulmonic Valve Pulmonic valve not well visualized. Pericardium Normal pericardium without effusion. Aorta Normal ascending aorta dimension. Brendon Plavac (Electronically Signed) Final Date: 07 December 2016 15:40
[2016-12-07] MEDS ORDERED: WARFARIN 4 MG TABLET PO SCH (18:00)
--- NOTE | 2016-12-07 18:27 | Hospitalist Progress Note ---
Assessment and Plan - Time spent with patient Time spent with patient: Greater than 30 minutes (1) Acute exacerbation of congestive heart failure Status: Acute Assessment and plan: EF of 30%. Continue current management. Current Visit: Yes (2) Cardiac enzymes elevated Status: Acute Assessment and plan: Cardiology is involved and is considering an [facility]. Current Visit: Yes (3) Pneumonia Status: Acute Assessment and plan: Continue antibiotic management. Current Visit: Yes (4) CAD (coronary artery disease) Status: Chronic Assessment and plan: Continue meds. Current Visit: Yes (5) Diabetes Status: Chronic Assessment and plan: Continue current management. Current Visit: Yes (6) Dyslipidemia Status: Chronic Current Visit: Yes (7) CKD (chronic kidney disease) Status: Acute Assessment and plan: Will continue to follow. Current Visit: Yes Hospitalist: Subjective Interval history: No complaints, no overnight events. States he feels better this morning. Exam - Constitutional Vitals: Period Temp Pulse Resp BP Sys/Castillo Pulse Ox Last 24 Hr 96.7 F-98.7 F 76-86 18-24 130-181/69-94 91-99 General appearance: no acute distress - Head Head exam: Present: normocephalic, atraumatic - Eye Eye exam: Present: EOMI Pupils: Present: KATIE - ENT ENT exam: Present: normal exam - Neck Neck exam: Present: normal inspection - Respiratory Respiratory exam: Present: clear to auscultation bilaterally. Absent: rhonchi, wheezes - Cardiovascular Cardiovascular exam: Present: regular rate and rhythm. Absent: gallop, rubs, systolic murmur - GI/Abdominal GI/Abdominal exam: Present: normal bowel sounds, soft. Absent: distended, firm , guarding, tenderness, rebound - Extremities Exam Extremities exam: Present: normal inspection, edema (1+). Absent: calf tenderness Results - Labs CBC & BMP: 12/07/16 02:07 12/07/16 02:07 Lab Results: I have reviewed the past 24 hour labs
[2016-12-07] MEDS: OLANZapine 5 MG TABLET PO SCH (21:54)
[2016-12-07] MEDS: GABAPENTIN 300 MG CAPSULE PO SCH (21:54)
[2016-12-07] MEDS: cefTRIAXone 1,000 MG in SODIUM CHLORIDE 0.9% 100 ML IV SCH (21:54)
[2016-12-07] MEDS: ROSUVASTATIN 20 MG TABLET PO SCH (21:54)
[2016-12-07] MEDS: INSULIN GLARGINE 100 UNIT/ML SUBCUT SCH (21:56)
[2016-12-07] MEDS ORDERED: cefTRIAXone 1,000 MG in SODIUM CHLORIDE 0.9% 100 ML IV SCH (23:30)
[2016-12-08] MEDS: NITROGLYCERIN 2% OINT 1 INCH/GM PACK TOP SCH ×5 (00:10→23:51)
[2016-12-08] MEDS: ENOXAPARIN 40 MG/0.4 ML SYRINGE SUBCUT SCH ×2 (00:11→23:51)
[2016-12-08] MEDS: AZITHROMYCIN INJ 500 MG in SODIUM CHLORIDE 0.9% 250 ML IV SCH (00:12)
[2016-12-08 03:14] LABS: Basophils % 0.3 % (0.0-0.8); Eosinophils # 0.3 10*3/uL (0.0-0.87); Eosinophils % 3.3 % (0.00-10.9); Hematocrit 42.5 VOL% (42.0-52.0); Hemoglobin 13.7 GM/DL (14.0-18.0); Immature Granulocytes % 0.1 %; Immature Granulocytes Absolute 0.01 #; Lymphocytes # 2.5 10*3/uL (1.4-4.0); Lymphocytes % 32.2 % (21.2-54.2); Mean Corpuscular HGB Conc 32.2 GM/DL (32-36); Mean Corpuscular Hemoglobin 30 PG (27-34); Mean Corpuscular Volume 94.2 FL (87-102); Mean Platelet Volume 10.6 FL (9.6-12.0); Monocytes # 0.5 10*3/uL (0.11-0.8); Monocytes % 6.6 % (1.7-12.7); Neutrophils # 4.4 10*3/uL (1.4-7.4); Neutrophils % 57.5 % (38.7-73.9); Platelet Count 176 T/CUMM (130-400); Red Blood Count 4.51 MC/CUMM (3.8-5.5); Red Cell Distribution Width 13.1 % (9.3-17.3); White Blood Count 7.6 T/CUMM (4-12)
[2016-12-08 03:46] LABS: Calcium 7.3 MG/DL (8.5-10.1); Osmolality,Calculated 296.1 MOS/KG (273-304); Potassium 3.8 MMOL/L (3.5-5.1)
[2016-12-08] MEDS: LEVOTHYROXINE 50 MCG TABLET PO SCH (06:06)
--- NOTE | 2016-12-08 07:24 | XRay Report ---
Referring Physician: Dante Taveras Exam: XR chest 1V portable Date: December 08, 2016 at 4:32 AM Reason: Shortness of breath Comparison: Chest one view portable December 06, 2016 Findings: The cardiac silhouette is upper normal in size. There are minimal opacities within the right lower lung zone. This could represent atelectasis, but pneumonia is not excluded. There is also a calcified granuloma within the right midlung zone. No pneumothorax or pleural effusion is identified. The osseous structures appear stable. Impression: There has been no significant change. PROCEDURE INTERPRETED AT [facility] DEPARTMENT OF RADIOLOGY Final Report Signed by: Dr. Chad Calloway
--- NOTE | 2016-12-08 08:23 | Physician Query Form ---
CLICK EDIT DOCUMENT TO SELECT QUERY ANSWER --> OK --> SIGN Donya Talbert RN, CCDS Certified Clinical [place] W) [phone] (f) [phone] [email or web address] PROVIDERS: Make your selection(s) from the choices in EACH section by typing an "x" and enter comments in the comment section. Please use your independent medical judgment in providing your response. This request does not imply that any particular answer is desired or expected. CLINICAL INDICATORS: (Providers should not edit this section) The medical record indicates that the patient was admitted with congestive heart failure, BNP of 1053, "EF of 30%" AND the patient was treated with IV Lasix. Please provide further specificity regarding CHF. TYPE: ( ) Systolic ( ) Diastolic (x ) Combined Systolic/Diastolic ( ) Other, please specify: ( ) Clinically unable to determine ( ) The patient does NOT have CHF COMMENTS: Use of terms such as suspected, likely, or probable (associated with a specific diagnosis that is being evaluated, monitored, or treated as if it exists) are acceptable and can be restated in the discharge summary if not ruled out. [facility]
[2016-12-08] MEDS: FUROSEMIDE 40 MG/4 ML VIAL IV SCH ×2 (08:31→16:46)
[2016-12-08] MEDS: INSULIN REGULAR 100 UNIT/ML SUBCUT SCH ×4 (08:31→21:10)
[2016-12-08] MEDS: DIGOXIN 0.25 MG TABLET PO SCH (08:31)
[2016-12-08] MEDS: OXcarbazepine 300 MG TABLET PO SCH ×2 (08:32→21:21)
[2016-12-08] MEDS: CARVEDILOL 25 MG TABLET PO SCH (08:32)
[2016-12-08] MEDS: ASPIRIN EC 81 MG TABLET PO SCH (08:32)
[2016-12-08] MEDS: LISINOPRIL 10 MG TABLET PO SCH (08:32)
[2016-12-08] MEDS: ACETYLCYSTEINE 600 MG CAPSULE PO SCH ×2 (08:32→21:31)
[2016-12-08] MEDS: amLODIPine 5 MG TABLET PO SCH (08:32)
[2016-12-08] MEDS ORDERED: POTASSIUM CHLORIDE RIDER 10 MEQ in PREMIX 1 EACH IV PRN (12:22)
[2016-12-08] MEDS ORDERED: diphenhydrAMINE CAP 25 MG CAPSULE PO ONE (12:22)
[2016-12-08] MEDS ORDERED: DIAZEPAM 5 MG TABLET PO ONE (12:22)
[2016-12-08] MEDS ORDERED: MAGNESIUM SULF RIDER 2 GM in PREMIX 1 EACH IV PRN (12:22)
--- NOTE | 2016-12-08 12:22 | Cardiology Progress Note ---
Emir Moralez Vanessa, RN, am scribing for, and in the presence of, Julian Jara MD 12:21. Assessment and Plan - Time spent with patient Time spent with patient: Less than 30 minutes (1) SOB (shortness of breath) Status: Acute Assessment and plan: See plan of care listed above. Current Visit: Yes (2) Cardiac enzymes elevated Status: Acute Assessment and plan: See plan of care listed above. Current Visit: Yes (3) Chest pain Status: Acute Assessment and plan: See plan of care listed above. Current Visit: Yes (4) Abdominal pulsatile mass Status: Acute Assessment and plan: See plan of care listed above. Current Visit: Yes (5) Carotid bruit Status: Acute Current Visit: Yes Qualifiers: Laterality: bilateral Qualified Code(s): R09.89 - Other specified symptoms and signs involving the circulatory and respiratory systems (6) Pneumonia Status: Acute Assessment and plan: See plan of care listed above. Current Visit: Yes (7) CAD (coronary artery disease) Status: Chronic Assessment and plan: See plan of care listed above. Current Visit: Yes (8) Dyslipidemia Status: Chronic Assessment and plan: See plan of care listed above. Current Visit: Yes (9) History of stroke Status: Chronic Assessment and plan: See plan of care listed above. Current Visit: Yes (10) Tobacco abuse Status: Chronic Assessment and plan: See plan of care listed above. Current Visit: Yes Cardiology - PN: Subj Interval history: 51 year old male under treatment for right lobe pneumonia. Last set of cardiac enzymes revealed trival troponin 0.076 with total CPK 292. EKG did not reveal STEMI. For shortness of breath, he continues to be diuresed with IV Lasix. Positive output noted today per chart, but he reports frequent voids. Patient is sleeping soundly upon exam. Easy to rouse. He denies chest pain or dyspnea this morning. His complaint is that he is having heartburn, and he goes back to sleep. Afebrile. BP 162/81. Regular rate and rhythm with heart rate in the 80' s. Chest x-ray shows no significant change from previous study. Labs reviewed: Na+, K+ 3.8, chloride 102, creatinine 2.2 with BUN 28, glucose 168. ASSESSMENT/PLAN: 1. SOB - shortness of breath is multifactorial in nature. Certainly, patient may be short of breath from his suspected pneumonia. His cardiac biomarkers are elevated in a fashion that this may represent a NSTEMI, also contributing to shortness of breath. Echocardiogram 12/07 found LV ejection fraction 30% with moderate global hypokinesis, RV normal size and function, mild atria enlargement, trace MR, aortic sclerosis without valve regurgitation, severe TR with PA pressure 60 mmHg, and no pericardial effusion. Upon admission , he reported he was orthopneic. Says he feels better, possibly still with slight orthopnea. He admits to frequent diuresis since admission. He is uncertain if he could lay flat for 4-6 hours at this time and will keep diuresing. 2. CHEST PAIN - chest tightness occurs with exertion and is relieved with rest. Reports today this is getting better. Patient has a history of known coronary artery disease. May be an anginal equivalent 3. ELEVATED CARDIAC BIOMARKERS - Possible NSTEMI. Last set of cardiac biomarkers with normal CPK and trivial troponin 0.076. Abnormal EKG noted. Has received ASA, Lovenox, beta blockers. Also receiving nitroglycerin paste routinely. 4. HYPERTENSION - suboptimally controlled at this time. Will adjust medications accordingly. 5. DYSLIPIDEMIA - continue lipid-lowering agent. Fasting lipid profile. 6. CAD - history of coronary artery disease and possibly HI approximately 10 years ago. Sounds as if he received POBA without stenting per patient report 7. PVD - decrease pulses BLE, history of BLE intervention in the past. 8. ABDOMINAL PULSATILE MASS - no acute abdominal processes found by ultrasound. 9. SUSPECTED PNEUMONIA - currently on appropriate antibiotics 10. CKD - Class III. Mucomyst 600 mg PO twice daily in anticipation of possible LHC. 11. TOBACCOISM - greater than 5 minutes was spent discussing the merits of tobacco cessation 12. POSSIBLE HISTORY OF ATRIAL FLUTTER - patient was taking Coumadin that his INR was 1.1. Upon interview, does not sound as if he is also routinely with ANDRE Georges for monthly INRs. We'll continue to monitor his rhythm while hospitalized. 13. CAROTID BRUIT, LEFT - carotid doppler US with less than 50% cervical ICA stenosis. Cardiology addendum. Patient examined and chart reviewed. 51-year-old man admitted with pneumonia and small troponin elevation and CHF. BNP level 1053 Status post PTCA unknown vessel [facility] 10 years ago Echo Doppler shows ejection fraction of 30% with global hypokinesis, aortic sclerosis, normal RV function, severe TR, PA pressure 60 with no effusion. Chronic dyspnea and easy fatigability. Multiple risk factors for CAD. Mild chronic renal insufficiency Plan Begin normal saline hydration. Cardiac cath, possible stent in a.m. by Dr. Chua. Procedure, risks and benefits reviewed with patient in layman's terms. All questions answered. He agrees to proceed as outlined Exam (Progress Note) - Constitutional Vitals: Period Temp Pulse Resp BP Sys/Castillo Pulse Ox Last 24 Hr 97.0 F-98.7 F 76-86 18-20 122-162/61-82 91-99 Exam: General: Appears well with no apparent distress. Pleasant and cooperative. Appears comfortable. HEENT: PERRL, normocephalic, atraumatic. Mucous membranes moist. No jaundice noted. Conjunctiva moist and clear, sclerae anicteric Neck: No JVD/HJR, no thyromegaly or lymphadenopathy noted. Bilateral carotid bruits. Left carotid endarterectomy incision. Cardiac: Regular rate and rhythm. Soft II/ HSM heard best at 5ICS left. Lungs: Inspiratory crackles noted posteriorly in bases, improve but persist with cough. No use of accessory muscle use to assist the respiratory pattern. No oxygen use today. Abdomen: Soft, bowel sounds normoactive. Nontender and nondistended. Abdominal pulsation bruit. Musculoskeletal: No fluid collection. Decreased range of motion is noted. Extremities: No clubbing, cyanosis noted. Trace ankle edema bilaterally. Difficult to palpate pulses of lower extremities, feet warm. Capillary refill less than 3 seconds. Skin: No unusual lesions or rashes. No skin breakdown appreciated. Neuro: Awake, alert and oriented 3. Moves all extremities well without hemiparesis or paralysis. No essential tremor is appreciated. Result/EKG - Labs CBC & BMP: 12/08/16 02:23 12/08/16 02:23 Lab Results: I have reviewed the past 24 hour labs Labs: Laboratory Results - last 24 hr 12/07/16 12/07/16 12/07/16 12:01 14:48 19:01 WBC RBC Hgb Hct MCV MCH MCHC RDW Plt Count MPV Neut % (Auto) Lymph % (Auto) Mcdonald % (Auto) Eos % (Auto) Baso % (Auto) Neut # (Auto) Lymph # (Auto) Mcdonald # (Auto) Eos # (Auto) Baso # (Auto) Immature Gran % Nucleated RBC % Immature Gran # Nucleated RBCs # Sodium Potassium Chloride Carbon Dioxide Anion Gap BUN Creatinine GFR Calculation BUN/Creatinine Ratio Glucose POC Glucose 270 H 302 H 191 H Calculated Osmolality Calcium 12/08/16 12/08/16 12/08/16 02:23 02:23 07:34 WBC 7.6 D RBC 4.51 Hgb 13.7 L Hct 42.5 MCV 94.2 MCH 30 MCHC 32.2 RDW 13.1 Plt Count 176 MPV 10.6 Neut % (Auto) 57.5 Lymph % (Auto) 32.2 Mcdonald % (Auto) 6.6 Eos % (Auto) 3.3 Baso % (Auto) 0.3 Neut # (Auto) 4.4 Lymph # (Auto) 2.5 Mcdonald # (Auto) 0.5 Eos # (Auto) 0.3 Baso # (Auto) 0.0 Immature Gran % 0.1 Nucleated RBC % 0.0 Immature Gran # 0.01 Nucleated RBCs # 0.00 Sodium 142 Potassium 3.8 Chloride 102 Carbon Dioxide 29 Anion Gap 14.8 BUN 28 H Creatinine 2.20 H GFR Calculation 44 BUN/Creatinine Ratio 12.00 Glucose 248 H POC Glucose 168 H Calculated Osmolality 296.1 Calcium 7.3 L - Diagnostic Findings Procedure: Chest x-ray: report reviewed by me, image reviewed by me - EKG EKG results: interpreted by me EKG shows: sinus rhythm (t-wave inversion) Estefani Moralez Thomas, MD, personally performed the services described in this documentation, ascribed by Casandra Field RN in my presence, and it is both accurate and complete .
--- NOTE | 2016-12-08 12:22 | History and Physical Update ---
Sedation H&P Update - History and Physical H&P was reviewed, the patient examined and there: are no changes in the patients condition since last H&P was completed. - Dictation Physical: refer to H&P completed by admitting physician - Physical Exam Mental Status: alert and oriented Heart: regular rate and rhythm Lung: clear to auscultation Abdomen: within normal limits Vitals: within normal limits - Sedation Plan for Sedation: moderate Patient Consent: Procedure disscussed with patient and patinet has consented., Risks and benefits were discussed with patient,including infection,, bleeding, injury to surrounding structures, seizure, temporary nerve, Patient understands and accepts potential risks/benefits and agrees to, proceed. ASA Class: II Airway Assessment: Class II: Soft palate, uvula, fauces visible
[2016-12-08] MEDS: SODIUM CHLORIDE 0.9% 1,000 ML IV SCH ×2 (13:36→21:15)
--- NOTE | 2016-12-08 17:06 | Hospitalist Progress Note ---
Assessment and Plan - Time spent with patient Time spent with patient: Greater than 30 minutes (1) Acute exacerbation of congestive heart failure Status: Acute Assessment and plan: EF of 30%. Continue current management. Current Visit: Yes (2) Cardiac enzymes elevated Status: Acute Assessment and plan: Cardiology is involved and will perform an LHC tomorrow. Current Visit: Yes (3) Pneumonia Status: Acute Assessment and plan: Continue antibiotic management. Current Visit: Yes (4) CAD (coronary artery disease) Status: Chronic Assessment and plan: Continue meds. Current Visit: Yes (5) Diabetes Status: Chronic Assessment and plan: Continue current management. Current Visit: Yes (6) Dyslipidemia Status: Chronic Current Visit: Yes (7) CKD (chronic kidney disease) Status: Acute Assessment and plan: Will continue to follow. Current Visit: Yes Hospitalist: Subjective Interval history: No complaints, no overnight events. Exam - Constitutional Vitals: Period Temp Pulse Resp BP Sys/Castillo Pulse Ox Last 24 Hr 94.8 F-98.2 F 75-80 18-22 122-162/61-82 92-99 General appearance: no acute distress - Head Head exam: Present: normocephalic, atraumatic - Eye Eye exam: Present: EOMI Pupils: Present: KATIE - ENT ENT exam: Present: normal exam - Neck Neck exam: Present: normal inspection - Respiratory Respiratory exam: Present: clear to auscultation bilaterally. Absent: rhonchi, wheezes - Cardiovascular Cardiovascular exam: Present: regular rate and rhythm. Absent: gallop, rubs, systolic murmur - GI/Abdominal GI/Abdominal exam: Present: normal bowel sounds, soft. Absent: distended, firm , guarding, tenderness, rebound - Extremities Exam Extremities exam: Present: normal inspection. Absent: calf tenderness, edema Results - Labs CBC & BMP: 12/08/16 02:23 12/08/16 02:23 Lab Results: I have reviewed the past 24 hour labs
[2016-12-08] MEDS: OLANZapine 5 MG TABLET PO SCH (21:07)
[2016-12-08] MEDS: ROSUVASTATIN 20 MG TABLET PO SCH (21:07)
[2016-12-08] MEDS: GABAPENTIN 300 MG CAPSULE PO SCH (21:07)
[2016-12-08] MEDS: cefTRIAXone 1,000 MG in SODIUM CHLORIDE 0.9% 100 ML IV SCH (21:08)
[2016-12-08] MEDS: INSULIN GLARGINE 100 UNIT/ML SUBCUT SCH (21:10)
[2016-12-09 04:01] LABS: Basophils % 0.5 % (0.0-0.8); Eosinophils # 0.6 10*3/uL (0.0-0.87); Hematocrit 43.8 VOL% (42.0-52.0); Immature Granulocytes % 0.2 %; Immature Granulocytes Absolute 0.01 #; Lymphocytes # 2.7 10*3/uL (1.4-4.0); Lymphocytes % 44.4 % (21.2-54.2); Mean Corpuscular Hemoglobin 30 PG (27-34); Mean Corpuscular Volume 95.2 FL (87-102); Mean Platelet Volume 9.9 FL (9.6-12.0); Monocytes # 0.5 10*3/uL (0.11-0.8); Monocytes % 7.8 % (1.7-12.7); Neutrophils # 2.2 10*3/uL (1.4-7.4); Neutrophils % 37.1 % (38.7-73.9); Platelet Count 194 T/CUMM (130-400); Red Cell Distribution Width 13.2 % (9.3-17.3)
[2016-12-09 04:12] LABS: INR 1.1; PT Patient Result 11.2 SECS
[2016-12-09 04:31] LABS: Calcium 7.6 MG/DL (8.5-10.1); Osmolality,Calculated 293.6 MOS/KG (273-304); Potassium 3.9 MMOL/L (3.5-5.1)
[2016-12-09 05:13] LABS: Eosinophils 6 % (0-10); Lymphocytes 49 % (20-55); Segmented Neutrophils 40 % (50-85); Total Cells Counted 100
[2016-12-09 05:15] LABS: Hypochromasia Slight; Platelet Estimate Normal
[2016-12-09] MEDS: NITROGLYCERIN 2% OINT 1 INCH/GM PACK TOP SCH (06:15)
[2016-12-09] MEDS: SODIUM CHLORIDE 0.9% 1,000 ML IV SCH ×3 (06:15→15:38)
[2016-12-09] MEDS: LEVOTHYROXINE 50 MCG TABLET PO SCH (06:16)
[2016-12-09] MEDS ORDERED: HEPARIN/NACL 0.9% 2 UNITS/ML 1,000 ML IV ONE (07:43)
[2016-12-09] MEDS ORDERED: LIDOCAINE 1% 20 ML VIAL ONE (07:43)
[2016-12-09] MEDS ORDERED: DIAZEPAM 5 MG TABLET ONE (07:44)
[2016-12-09] MEDS ORDERED: diphenhydrAMINE CAP 25 MG CAPSULE ONE (07:45)
[2016-12-09] MEDS: amLODIPine 5 MG TABLET PO SCH ×2 (07:50→08:03)
[2016-12-09] MEDS: ASPIRIN EC 81 MG TABLET PO SCH ×2 (07:50→08:03)
[2016-12-09] MEDS: ACETYLCYSTEINE 600 MG CAPSULE PO SCH ×3 (07:50→21:38)
[2016-12-09] MEDS: CARVEDILOL 25 MG TABLET PO SCH ×2 (07:50→08:03)
[2016-12-09] MEDS: AZITHROMYCIN 250 MG TABLET PO SCH ×2 (07:51→08:04)
[2016-12-09] MEDS: LISINOPRIL 10 MG TABLET PO SCH ×2 (07:51→08:03)
[2016-12-09] MEDS: INSULIN REGULAR 100 UNIT/ML SUBCUT SCH ×4 (07:54→21:38)
--- NOTE | 2016-12-09 08:00 | Event Note ---
I examined this patient yesterday after discussing with Dr. boo. Briefly is a 51-year-old gentleman with history of left heart catheterization what sounds like a POBA approximately 10 years ago at [facility]. He had a low EF at that time but has not been followed up for some time he is admitted with COPD /heart failure exacerbation and found to have an EF of 30%. He continues to smoke and has history of vascular disease. We anticipate left heart catheterization today as I discussed with the patient and possible percutaneous coronary mention. He has a creatinine of 1.8 which we will be very judicious as possible with contrast. I discussed all risk benefits and options with the patient yesterday and he voiced understanding. I discussed with the patient and answered questions in the lab just before [facility] this AM. He is willing to proceed.
[2016-12-09] MEDS ORDERED: fentaNYL 100 MCG/2 ML VIAL ONE (08:05)
[2016-12-09] MEDS ORDERED: MIDAZOLAM 2 MG/2 ML VIAL ONE (08:05)
[2016-12-09] MEDS ORDERED: ceFAZolin 1,000 MG VIAL ONE (08:40)
[2016-12-09] MEDS ORDERED: ACETAMINOPHEN 325 MG TABLET PO PRN (08:43)
--- NOTE | 2016-12-09 08:56 | Cardiac Catheterization ---
Date of Procedure:: 12/09/16 Pre-op Diagnosis: Cardiomyopathy, decompensated with known coronary disease Post-op diagnosis: other (Coronary artery disease with chronic total occlusion previous in stent restenosis of the RCA, nonischemic dilated cardiomyopathy, decompensated with uncontrolled hypertension) Procedure: Procedures: 1. Selective left and right coronary angiography 2. Left heart catheterization resting hemodynamics After consent was taken from the patient. Taken to the catheterization lab for left heart catheterization via the left femoral artery. Time out was taken and recorded. 1% lidocaine was infiltrated in the skin and subcutaneous tissue overlying the left femoral artery. Modified Seldinger technique and an 18- gauge Cook needle was used for access to the right femoral artery. An 0.35 J- wire was advanced through the needle into the central aorta under fluoroscopy. A small skin was made and a 6 Slovenian sheath was placed over the wire. The sheath was aspirated and flushed. A J-wire was advanced through the left femoral sheath went across the aortic valve therefore the JL4 catheter was advanced across aortic valve pressure measurements and pullback were performed. The JL46 was pulled back and left main coronary artery was selectively engaged. Multiple orthogonal views of the left system were obtained. The catheter was then exchanged over the wire. The sheath was aspirated and flushed. A JR4 catheter was advanced over the wire into the central aorta. The right coronary was selectively engaged and orthogonal views of the right coronary artery were obtained. The catheter was then exchanged over the wire, the sheath was aspirated and flushed. The cupola operator insulation reviewed the films. The sheath was aspirated and flushed and a right femoral and iliac angiography was performed. The access site was amenable for closure and the area was reprepped with ChloraPrep and draped with sterile towels. The Angio-Seal closure device was used in standard technique. There was no hematoma and distal pulses were good. Total diagnostic fluoroscopy time 3.4 minutes with total contrast exposure 35 cc of Visipaque and total diagnostic fluoroscopy dose 249 mGy FINDINGS: LV: 180/29 LVEDP: 42 Ao:184/104 LM: Small and diffusely diseased LAD: Very small left anterior descending artery is diffusely diseased reaches the apex ventricular myocardium. There are no high-grade epicardial stenosis that supplies collaterals to the right PDA posterolateral branch LCx: This is a small nondominant vessel with no high-grade epicardial stenosis RCA: Is a very small diffusely diseased vessel is 100% occluded at the segment in the mid segment between the first and second genu. Is 100% occluded before the takeoff of acute marginal and the previously deployed stent appears to be significantly larger than the vessel therefore I suspect this is diffusely diseased. The stump is not well-visualized but appears to be right at the takeoff of an acute marginal. LFA/BLAS: The left femoral iliac arteries are angiographically normal there is lots of surgical clips and scar tissue in the area around the artery therefore it was closed with Angio-Seal it was amenable for closure. Extra dose of antibiotics were given because the patient contaminated the field during the procedure. Assessment: 1. Uncontrolled hypertension 2. Coronary artery disease with CT of the RCA as described above 3. Nonischemic dilated cardiomyopathy, decompensated 4. Chronic renal insufficiency PLAN: 1. Medical management 2. Assess for ICD candidacy 3. Ensure compliance before proceeding with aggressive interventions Implants: Angio-Seal left femoral artery Anesthesia: moderate conscious sedation Surgeon / Physician: Rossi Vasquez Chief Controller Tower: none Estimated blood loss: none Specimens: none sent Condition: stable Disposition: floor - Medications / Follow-up
[2016-12-09] MEDS: OXcarbazepine 300 MG TABLET PO SCH ×2 (09:37→21:38)
[2016-12-09] MEDS: DIGOXIN 0.25 MG TABLET PO SCH (09:37)
[2016-12-09] MEDS: FUROSEMIDE 40 MG/4 ML VIAL IV SCH ×2 (09:38→15:30)
[2016-12-09] MEDS: ISOSORBIDE MONONITRATE 30 MG TABLET PO SCH (09:38)
--- NOTE | 2016-12-09 09:59 | Hospitalist Progress Note ---
Assessment and Plan (1) Acute exacerbation of congestive heart failure Status: Acute Assessment and plan: Recent echo revealed ejection fraction of 30% likely due to ischemic cardiomyopathy Cardiology is planning ICD placement Current Visit: Yes (2) CKD (chronic kidney disease) Status: Chronic Assessment and plan: Creatinine 1.8 Continue IV fluids at 125 cc/h Repeat BMP in am Current Visit: Yes (3) Cardiac enzymes elevated Status: Acute Assessment and plan: Due to demand ischemia Status post left heart cath today Continue antiplatelets Current Visit: Yes (4) Chest pain Status: Acute Assessment and plan: Currently asymptomatic Status post left heart cath today Recommend medical management and strict adherence to meds Current Visit: Yes (5) Pneumonia Status: Acute Assessment and plan: Chest x-ray on admission revealed possible bilateral infiltrates and basis Patient is afebrile WBC normal No upper respiratory infection, denies cough We will continue to monitor Current Visit: Yes (6) CAD (coronary artery disease) Status: Chronic Assessment and plan: Status post left heart cath Recommended medical management and antiplatelet therapy Current Visit: Yes (7) Diabetes Status: Chronic Assessment and plan: Continue insulin per sliding scale Continue home diabetes medication Current Visit: Yes (8) Dyslipidemia Status: Chronic Assessment and plan: Continue statin Current Visit: Yes (9) Hypertension Status: Chronic Assessment and plan: Blood pressure is controlled Continue current medical regimen Current Visit: Yes Hospitalist: Subjective Interval history: Mr. Godwin is a 51 year old male past medical history significant for congestive heart failure, coronary artery disease, [place] about 10 years ago, stroke , hypertension, diabetes, peripheral vascular disease, and COPD he's been experiencing shortness of breath and chest tightness time 3 weeks. He noticed that this shortness of breath and chest tightness comes on when he exerts himself. Says when just gives out on him. Patient also noted some radiation of the pain to his neck. And he's had some numbness sensation bilaterally in his fingertips when this comes on. Patient started noticing increased swelling in his lower extremities. Patient had a sense that something was going to happen to him so he got his friend bring him up to the emergency room. Patient had troponin elevated 2. Chest x-ray was with suspicious bilateral base infiltrates Today: Somnolent status post left heart cath today. Recommended medical management and possible ICD placement. His recent echo revealed ejection fraction 30%. Patient is afebrile, vital signs stable Exam - Constitutional Vitals: Period Temp Pulse Resp BP Sys/Castillo Pulse Ox Last 24 Hr 94.8 F-98.9 F 71-85 18-22 135-175/71-109 91-98 General appearance: normal weight, no acute distress - Head Head exam: Present: normal inspection, normocephalic, atraumatic - Eye Eye exam: Present: EOMI Pupils: Present: KATIE - ENT ENT exam: Present: normal exam - Neck Neck exam: Present: normal inspection - Respiratory Respiratory exam: Present: wheezes (Bilateral tiny wheezing on expiration on bases ) - Cardiovascular Cardiovascular exam: Present: regular rate and rhythm - GI/Abdominal GI/Abdominal exam: Present: normal bowel sounds - Extremities Exam Extremities exam: Present: normal inspection, normal capillary refill - Neurological Exam Neurological exam: Present: other (Patient is somnolent due to recent anesthesia for left heart cath) - Psychiatric Psychiatric exam: Present: normal affect, normal mood - Skin Skin exam: Present: normal color, warm Results - Labs CBC & BMP: 12/09/16 02:43 12/09/16 02:43 Quality Measures - VTE Contraindication to Pharmacological VTE Prophylaxis: High Risk of Bleeding Specialty Discharge - Follow Up or Referrals
[2016-12-09] MEDS ORDERED: GLUCAGON 1 MG VIAL IM PRN (10:17)
[2016-12-09] MEDS ORDERED: DEXTROSE 50% 25 GM/50 ML VIAL IV PRN (10:17)
--- NOTE | 2016-12-09 10:41 | Cardiology Progress Note ---
Assessment and Plan (1) SOB (shortness of breath) Status: Acute Assessment and plan: See plan of care listed above. Current Visit: Yes (2) Cardiac enzymes elevated Status: Acute Assessment and plan: See plan of care listed above. Current Visit: Yes (3) Chest pain Status: Acute Assessment and plan: See plan of care listed above. Current Visit: Yes (4) Abdominal pulsatile mass Status: Acute Assessment and plan: See plan of care listed above. Current Visit: Yes (5) Carotid bruit Status: Acute Current Visit: Yes Qualifiers: Laterality: bilateral Qualified Code(s): R09.89 - Other specified symptoms and signs involving the circulatory and respiratory systems (6) Pneumonia Status: Acute Assessment and plan: See plan of care listed above. Current Visit: Yes (7) CAD (coronary artery disease) Status: Chronic Assessment and plan: See plan of care listed above. Current Visit: Yes (8) Dyslipidemia Status: Chronic Assessment and plan: See plan of care listed above. Current Visit: Yes (9) History of stroke Status: Chronic Assessment and plan: See plan of care listed above. Current Visit: Yes (10) Tobacco abuse Status: Chronic Assessment and plan: See plan of care listed above. Current Visit: Yes Cardiology - PN: Subj Interval history: Cardiology note Cath results noted. EDP 42, blood pressure 180/79 Telemetry shows steady sinus rhythm Decreased breath sounds but fairly clear Regular rhythm no gallop Right groin soft and dry Lab data today Sodium 146 potassium 3.9 chloride 106 CO2 32 BUN 25 creatinine 1.80 Glucose 115 Magnesium 1.9 hemoglobin 14.0 hematocrit 43.8 Impression Nonischemic cardia myopathy EF 30% Chronically occluded RCA Single-vessel CAD Long-standing hypertension with inadequate control New onset CHF Mild chronic renal insufficiency Plan Groin precautions discussed Hydralazine started Titrate BP meds for afterload reduction BMP in a.m. Exam (Progress Note) - Constitutional Vitals: Period Temp Pulse Resp BP Sys/Castillo Pulse Ox Last 24 Hr 94.8 F-98.9 F 71-85 18-22 135-175/71-109 91-98 Result/EKG - Labs CBC & BMP: 12/09/16 02:43 12/09/16 02:43 Labs: Laboratory Results - last 24 hr 12/08/16 12/08/16 12/08/16 11:37 15:35 18:52 WBC RBC Hgb Hct MCV MCH MCHC RDW Plt Count MPV Neut % (Auto) Lymph % (Auto) [place] % (Auto) Eos % (Auto) Baso % (Auto) Neut # (Auto) Lymph # (Auto) [place] # (Auto) Eos # (Auto) Baso # (Auto) Total Counted Immature Gran % Nucleated RBC % Immature Gran # Segmented Neutrophils Lymphocytes Monocytes Eosinophils Basophils Nucleated RBCs # Platelet Estimate Hypochromasia INR PT Patient/Control Mix Sodium Potassium Chloride Carbon Dioxide Anion Gap BUN Creatinine GFR Calculation BUN/Creatinine Ratio Glucose POC Glucose 206 H 297 H 242 H Calculated Osmolality Calcium Magnesium 12/09/16 12/09/16 12/09/16 02:43 02:43 02:43 WBC 6.0 RBC 4.60 Hgb 14.0 Hct 43.8 MCV 95.2 MCH 30 MCHC 32.0 RDW 13.2 Plt Count 194 MPV 9.9 Neut % (Auto) 37.1 L Lymph % (Auto) 44.4 [place] % (Auto) 7.8 Eos % (Auto) 10.0 Baso % (Auto) 0.5 Neut # (Auto) 2.2 Lymph # (Auto) 2.7 [place] # (Auto) 0.5 Eos # (Auto) 0.6 Baso # (Auto) 0.0 Total Counted 100 Immature Gran % 0.2 Nucleated RBC % 0.0 Immature Gran # 0.01 Segmented Neutrophils 40 L Lymphocytes 49 Monocytes 3 Eosinophils 6 Basophils 2.0 H Nucleated RBCs # 0.00 Platelet Estimate Normal Hypochromasia Slight INR 1.1 PT Patient/Control Mix 11.2 Sodium 146 H Potassium 3.9 Chloride 106 Carbon Dioxide 32 Anion Gap 11.9 BUN 25 H Creatinine 1.80 H GFR Calculation 56 BUN/Creatinine Ratio 13.00 Glucose 103 POC Glucose Calculated Osmolality 293.6 Calcium 7.6 L Magnesium 12/09/16 12/09/16 02:43 07:09 WBC RBC Hgb Hct MCV MCH MCHC RDW Plt Count MPV Neut % (Auto) Lymph % (Auto) [place] % (Auto) Eos % (Auto) Baso % (Auto) Neut # (Auto) Lymph # (Auto) [place] # (Auto) Eos # (Auto) Baso # (Auto) Total Counted Immature Gran % Nucleated RBC % Immature Gran # Segmented Neutrophils Lymphocytes Monocytes Eosinophils Basophils Nucleated RBCs # Platelet Estimate Hypochromasia INR PT Patient/Control Mix Sodium Potassium Chloride Carbon Dioxide Anion Gap BUN Creatinine GFR Calculation BUN/Creatinine Ratio Glucose POC Glucose 115 H Calculated Osmolality Calcium Magnesium 1.9 Quality Measures - VTE Contraindication to Pharmacological VTE Prophylaxis: High Risk of Bleeding Specialty Discharge - Follow Up or Referrals
--- NOTE | 2016-12-09 14:52 | Ultrasound Report ---
US arterial duplex LE BI Indication: Right groin bruit. Heart catheter with failed access attempt right groin, and successful arterial access left groin. Arterial Doppler ultrasound both legs: Grayscale, color Doppler and pulse Doppler interrogation of the arterial system of both legs performed. No pseudoaneurysm in either groin. No evidence of arteriovenous fistula. The right common femoral arteries are bilaterally patent. In the right leg, no flow is seen within the superficial femoral artery proximally and mid thigh, with some minimal but attenuated flow in the distal right SFA and popliteal artery. Monophasic and biphasic waveforms are present within the right posterior tibialis, anterior tibialis and peroneal arteries. In the left leg, no flow is identified in the superficial femoral artery. Biphasic flow is identified in the popliteal artery. No flow is shown within the posterior tibialis arteries. There is small amount of monophasic and biphasic flow in the left anterior tibialis artery. No DVT identified within the visualized venous structures. Impression: 1. No evidence of pseudoaneurysm or arteriovenous fistula. 2. Severe peripheral vascular disease with segmental occlusion of both superficial femoral arteries as detailed above. Markedly attenuated outflow to the calves noted with patency of the right posterior and anterior tibialis arteries, and patency of the left anterior tibialis artery. Left posterior tibialis artery is occluded. PROCEDURE INTERPRETED AT [facility] DEPARTMENT OF RADIOLOGY Final Report Signed by: Dante Santos M.D.
[2016-12-09] MEDS: cefTRIAXone 1,000 MG in SODIUM CHLORIDE 0.9% 100 ML IV SCH (21:37)
[2016-12-09] MEDS: ROSUVASTATIN 20 MG TABLET PO SCH (21:38)
[2016-12-09] MEDS: GABAPENTIN 300 MG CAPSULE PO SCH (21:38)
[2016-12-09] MEDS: INSULIN GLARGINE 100 UNIT/ML SUBCUT SCH (21:39)
[2016-12-09] MEDS: OLANZapine 5 MG TABLET PO SCH (21:42)
[2016-12-10] MEDS: SODIUM CHLORIDE 0.9% 1,000 ML IV SCH ×3 (00:39→14:05)
[2016-12-10 04:10] LABS: Basophils % 0.3 % (0.0-0.8); Eosinophils # 0.7 10*3/uL (0.0-0.87); Eosinophils % 10.9 % (0.00-10.9); Hemoglobin 14.2 GM/DL (14.0-18.0); Immature Granulocytes % 0.2 %; Immature Granulocytes Absolute 0.01 #; Lymphocytes # 2.2 10*3/uL (1.4-4.0); Mean Corpuscular HGB Conc 32.3 GM/DL (32-36); Mean Corpuscular Hemoglobin 30 PG (27-34); Mean Corpuscular Volume 94.2 FL (87-102); Mean Platelet Volume 10.3 FL (9.6-12.0); Monocytes # 0.5 10*3/uL (0.11-0.8); Monocytes % 8.6 % (1.7-12.7); Neutrophils # 2.6 10*3/uL (1.4-7.4); Platelet Count 197 T/CUMM (130-400); Red Blood Count 4.67 MC/CUMM (3.8-5.5); Red Cell Distribution Width 12.8 % (9.3-17.3); White Blood Count 6.1 T/CUMM (4-12)
[2016-12-10 04:38] LABS: Calcium 7.7 MG/DL (8.5-10.1); Osmolality,Calculated 294.6 MOS/KG (273-304); Potassium 3.6 MMOL/L (3.5-5.1)
[2016-12-10] MEDS: LEVOTHYROXINE 50 MCG TABLET PO SCH (06:32)
[2016-12-10] MEDS: FUROSEMIDE 40 MG/4 ML VIAL IV SCH (09:35)
[2016-12-10] MEDS: INSULIN REGULAR 100 UNIT/ML SUBCUT SCH ×2 (09:35→14:05)
[2016-12-10] MEDS: ASPIRIN EC 81 MG TABLET PO SCH (09:39)
[2016-12-10] MEDS: CARVEDILOL 25 MG TABLET PO SCH (09:40)
[2016-12-10] MEDS: amLODIPine 5 MG TABLET PO SCH (09:40)
[2016-12-10] MEDS: ACETYLCYSTEINE 600 MG CAPSULE PO SCH (09:40)
[2016-12-10] MEDS: DIGOXIN 0.25 MG TABLET PO SCH (09:40)
[2016-12-10] MEDS: ISOSORBIDE MONONITRATE 30 MG TABLET PO SCH (09:40)
[2016-12-10] MEDS: AZITHROMYCIN 250 MG TABLET PO SCH (09:41)
[2016-12-10] MEDS: OXcarbazepine 300 MG TABLET PO SCH (09:41)
[2016-12-10] MEDS: LISINOPRIL 10 MG TABLET PO SCH (09:41)
--- NOTE | 2016-12-10 10:21 | Discharge Summary ---
<Megan Ace - Last Filed: 12/10/16 10:16> Hospital Course - Hospital Course Hospital Course: Mr. Godwin was admitted on 12/06 with chest pain, acute chf exacerbation, elevated troponins, and early pneumonia. He was admitted to telemetry for close cardiac observation, serial enzymes, echo, diuresis and cardiology consultation. Dr. Jara saw in cardiac consultation on 12/07. He does have a hx of HTN, HLD, CAD, carotid bruit bilaterally, tobacco use and hx of stroke. He did have an elevation of troponin at 0.106 with CPK and MC mildly elevated. EKG was abnormal but not indicative of STEMI. EF 30%. On 12/09, Mr. Godwin underwent a heart cath that showed "uncontrolled HTN, CAD with CT of the RCA, Nonischemic dilated cardiomyopathy". He will be controlled medically. He did have some mild acute renal failure with an admission creatinine of 2.2 improving to 1.8. Cardiology would like to place ICD at some point. Mr. Godwin has improved and is ready for discharge home today on appropriate medications and follow up. - Time spent with patient Time with patient DS: Greater than 30 minutes (due to plan, doc and med rec.) Diagnosis - Discharge Diagnosis (1) Acute on chronic systolic CHF (congestive heart failure) Status: Acute (2) JESSEE (acute kidney injury) Status: Acute (3) Pneumonia Status: Acute (4) mild bump in troponins Status: Acute (5) Diabetes Status: Chronic (6) Dyslipidemia Status: Chronic (7) History of stroke Status: Chronic (8) Hypertension Status: Chronic (9) Tobacco abuse Status: Chronic Specialty Discharge - Follow Up or Referrals Discharge Plan - Discharge Data Disposition: Disch To Home/Self Care - Discharge Medications New Isosorbide Mononitrate [Imdur] 30 mg PO DAILY #30 tablet hydrALAZINE TAB [Apresoline Tab] 50 mg PO BID #60 tablet Furosemide Tab [Lasix Tab] 40 mg PO DAILY #30 tablet Continue Amlodipine Besylate 5 mg PO DAILY Nitroglycerin Sl Tab [Nitrostat] 0.4 mg SL Q5M PRN PRN Reason: Chest Pain Levothyroxine Tab [Synthroid Tab] 50 mcg PO DAILY@0700 Carvedilol 25 mg PO DAILY Digoxin 250 mcg PO DAILY OXcarbazepine [Oxcarbazepine] 300 mg PO BID OLANZapine [Olanzapine] 5 mg PO BEDTIME Warfarin Sodium 4 mg PO DAILY Rosuvastatin [Crestor] 20 mg PO BEDTIME Gabapentin Cap/Tab [Neurontin Cap/Tab] 600 mg PO BEDTIME Tiotropium Inhalation [Spiriva Handihaler] 2 puff INH BID Aspirin EC Tab 81 mg PO DAILY Lisinopril 10 mg PO DAILY glipiZIDE [Glipizide] 10 mg PO BIDAC Insulin Glargine,Hum.rec.anlog [Lantus SoloStar] 15 units SUBCUT BEDTIME Discontinued Furosemide Tab [Lasix Tab] 20 mg PO DAILY - Follow Up or Referral - Forms/Instructions Instructions: Left Heart Catheterization (DC), Heart Healthy Diet (GEN), Cigarette Smoking and Your Health (GEN) Exam - Constitutional Vitals: Period Temp Pulse Resp BP Sys/Castillo Pulse Ox Last 24 Hr 95.2 F-98 F 51-77 16-20 91-163/58-98 90-99 Discharge Results Labs on day of discharge: Labs from last 24 hours 12/10/16 12/10/16 12/10/16 07:35 03:07 03:07 WBC 6.1 RBC 4.67 Hgb 14.2 Hct 44.0 MCV 94.2 MCH 30 MCHC 32.3 RDW 12.8 Plt Count 197 MPV 10.3 Neut % (Auto) 43.0 Lymph % (Auto) 37.0 [place] % (Auto) 8.6 Eos % (Auto) 10.9 Baso % (Auto) 0.3 Neut # (Auto) 2.6 Lymph # (Auto) 2.2 [place] # (Auto) 0.5 Eos # (Auto) 0.7 Baso # (Auto) 0.0 Immature Gran % 0.2 Nucleated RBC % 0.0 Immature Gran # 0.01 Nucleated RBCs # 0.00 Sodium 146 H Potassium 3.6 Chloride 106 Carbon Dioxide 33 H Anion Gap 10.6 BUN 23 H Creatinine 1.90 H GFR Calculation 52 BUN/Creatinine Ratio 12.00 Glucose 110 H POC Glucose 86 Calculated Osmolality 294.6 Calcium 7.7 L 12/09/16 12/09/16 12/09/16 20:19 15:45 11:10 WBC RBC Hgb Hct MCV MCH MCHC RDW Plt Count MPV Neut % (Auto) Lymph % (Auto) [place] % (Auto) Eos % (Auto) Baso % (Auto) Neut # (Auto) Lymph # (Auto) [place] # (Auto) Eos # (Auto) Baso # (Auto) Immature Gran % Nucleated RBC % Immature Gran # Nucleated RBCs # Sodium Potassium Chloride Carbon Dioxide Anion Gap BUN Creatinine GFR Calculation BUN/Creatinine Ratio Glucose POC Glucose 288 H 180 H 129 H Calculated Osmolality Calcium DS: Provider Date of admission: 12/06/16 23:05 Primary care physician: . No PCP Attending physician on admission: Marysol Craig MD Consults: 12/07/16 00:09 Consult to Pharmacy [CONS] Routine Reason for Pharmacy Consult: Adjust Meds Renal Funct 12/09/16 08:43 Consult to Cardiac Rehabilitation [CONS] Routine Reason for Cardiac Rehabilitation: Risk Factor Modification Discharging clinician: Megan Ace NP Expected date of discharge: 12/10/16 <Anna Nice - Last Filed: 12/10/16 11:07> Hospital Course - Hospital Course Hospital Course: This is an addendum to [facility] note of discharge summary. Agree with assessment and plan, I personally interviewed and examined the patient. 51 years old admitted for chest pain was found to have elevated troponins and community-acquired pneumonia. Cardiology were consulted. His echo revealed 30% ejection fraction , he underwent left heart cath which revealed RCA obstruction. Recommendation was given to treat medically with antiplatelets. He will need ICD placement in near future. She is going to be discharged today and have follow-up appointment with Dr. Jara in 1-2 weeks Diagnosis - Discharge Diagnosis (1) Acute exacerbation of congestive heart failure Status: Acute (2) CKD (chronic kidney disease) Status: Chronic (3) Cardiac enzymes elevated Status: Acute (4) Chest pain Status: Acute (5) Pneumonia Status: Acute (6) CAD (coronary artery disease) Status: Chronic (7) Diabetes Status: Chronic (8) Dyslipidemia Status: Chronic (9) Hypertension Status: Chronic Discharge Plan - Discharge Data Condition at Discharge: Stable Activity: resume usual activities as tolerated Hygiene: no restrictions Weight Bearing at Discharge: full weight bearing Driving: no restrictions Contact your physician if you experience:: fever over 101, Difficulty voiding, Nausea/Vomiting, pain uncontrolled by pain medications - Forms/Instructions Additional Discharge Instructions: with cardiology Dr. Jara in 1-2 weeks
[2016-12-10 12:20] VITALS: BP 140/67
--- NOTE | 2016-12-10 13:02 | Cardiology Progress Note ---
I, Casandra Field RN, am scribing for, and in the presence of, Julian Jara MD 13:02. Assessment and Plan - Time spent with patient Time spent with patient: Less than 30 minutes (1) SOB (shortness of breath) Status: Acute Assessment and plan: See plan of care listed above. Current Visit: Yes (2) Cardiac enzymes elevated Status: Acute Assessment and plan: See plan of care listed above. Current Visit: Yes (3) Chest pain Status: Acute Assessment and plan: See plan of care listed above. Current Visit: Yes (4) Abdominal pulsatile mass Status: Acute Assessment and plan: See plan of care listed above. Current Visit: Yes (5) Carotid bruit Status: Acute Current Visit: Yes Qualifiers: Laterality: bilateral Qualified Code(s): R09.89 - Other specified symptoms and signs involving the circulatory and respiratory systems (6) Pneumonia Status: Acute Assessment and plan: See plan of care listed above. Current Visit: Yes (7) CAD (coronary artery disease) Status: Chronic Assessment and plan: See plan of care listed above. Current Visit: Yes (8) Dyslipidemia Status: Chronic Assessment and plan: See plan of care listed above. Current Visit: Yes (9) History of stroke Status: Chronic Assessment and plan: See plan of care listed above. Current Visit: Yes (10) Tobacco abuse Status: Chronic Assessment and plan: See plan of care listed above. Current Visit: Yes Cardiology - PN: Subj Interval history: Status post cardiac cath yesterday EDP 42, blood pressure 154/79 Telemetry shows steady sinus rhythm, no ectopy Decreased breath sounds but fairly clear Regular rhythm no gallop Right groin soft and dry without hematoma. Distal pulses palpable Lab data today Sodium 146, potassium 3.6 chloride 106 CO2 33 BUN 23 creatinine 1.90 Glucose 110 Hemoglobin 14.2, hematocrit 44 Impression Nonischemic cardiomyopathy EF 30% Chronically occluded RCA Single-vessel CAD Long-standing hypertension with inadequate control New onset CHF Mild chronic renal insufficiency Plan Ok to discharge home. Follow up with me in office in 1 week with EKG, CBC, BMP and magnesium level Groin precautions discussed Continue current medications Creatinine stable at 1.90. I plan to titrate medicines further for afterload reduction as an outpatient Exam (Progress Note) - Constitutional Vitals: Period Temp Pulse Resp BP Sys/Castillo Pulse Ox Last 24 Hr 95.2 F-98 F 51-77 16-20 91-163/58-98 90-99 General appearance: no acute distress, over weight Exam: General: Appears well with no apparent distress. Pleasant and cooperative. Appears comfortable. HEENT: PERRL, normocephalic, atraumatic. Mucous membranes moist. No jaundice noted. Conjunctiva moist and clear, sclerae anicteric Neck: No JVD/HJR, no thyromegaly or lymphadenopathy noted. Bilateral carotid bruits. Left carotid endarterectomy incision. Cardiac: Regular rate and rhythm. Soft II/ HSM heard best at 5ICS left. Lungs: Inspiratory crackles noted posteriorly in bases, improve but persist with cough. No use of accessory muscle use to assist the respiratory pattern. No oxygen use today. Abdomen: Soft, bowel sounds normoactive. Nontender and nondistended. Abdominal pulsation bruit. Musculoskeletal: No fluid collection. Decreased range of motion is noted. Extremities: No clubbing, cyanosis noted. Trace ankle edema bilaterally. Difficult to palpate pulses of lower extremities, feet warm. Capillary refill less than 3 seconds. right groin cath site without hematoma or bruit. Skin: No unusual lesions or rashes. No skin breakdown appreciated. Neuro: Awake, alert and oriented 3. Moves all extremities well without hemiparesis or paralysis. No essential tremor is appreciated. - Head Head exam: Present: normal inspection. Absent: contusion, hematoma Result/EKG - Labs CBC & BMP: 12/10/16 03:07 12/10/16 03:07 Lab Results: I have reviewed the past 24 hour labs Labs: Laboratory Results - last 24 hr 12/09/16 12/09/16 12/09/16 11:10 15:45 20:19 WBC RBC Hgb Hct MCV MCH MCHC RDW Plt Count MPV Neut % (Auto) Lymph % (Auto) [place] % (Auto) Eos % (Auto) Baso % (Auto) Neut # (Auto) Lymph # (Auto) [place] # (Auto) Eos # (Auto) Baso # (Auto) Immature Gran % Nucleated RBC % Immature Gran # Nucleated RBCs # Sodium Potassium Chloride Carbon Dioxide Anion Gap BUN Creatinine GFR Calculation BUN/Creatinine Ratio Glucose POC Glucose 129 H 180 H 288 H Calculated Osmolality Calcium 12/10/16 12/10/16 12/10/16 03:07 03:07 07:35 WBC 6.1 RBC 4.67 Hgb 14.2 Hct 44.0 MCV 94.2 MCH 30 MCHC 32.3 RDW 12.8 Plt Count 197 MPV 10.3 Neut % (Auto) 43.0 Lymph % (Auto) 37.0 [place] % (Auto) 8.6 Eos % (Auto) 10.9 Baso % (Auto) 0.3 Neut # (Auto) 2.6 Lymph # (Auto) 2.2 [place] # (Auto) 0.5 Eos # (Auto) 0.7 Baso # (Auto) 0.0 Immature Gran % 0.2 Nucleated RBC % 0.0 Immature Gran # 0.01 Nucleated RBCs # 0.00 Sodium 146 H Potassium 3.6 Chloride 106 Carbon Dioxide 33 H Anion Gap 10.6 BUN 23 H Creatinine 1.90 H GFR Calculation 52 BUN/Creatinine Ratio 12.00 Glucose 110 H POC Glucose 86 Calculated Osmolality 294.6 Calcium 7.7 L - EKG EKG results: interpreted by me, no acute changes EKG shows: sinus rhythm (pulse 70's) Quality Measures - VTE Contraindication to Pharmacological VTE Prophylaxis: High Risk of Bleeding Specialty Discharge - Follow Up or Referrals Estefani Moralez Thomas, MD, personally performed the services described in this documentation, ascribed by Casandra Field RN in my presence, and it is both accurate and complete .
== END 2016-12-10 14:40 | disposition home or self-care (01) | DRG 286 ==
LOC: N.ED 18:29 → N.EDINP 23:03 → N.TELEN 23:53
PROVIDERS: ADMIT Internal Medicine; ATTEND Internal Medicine
PROC: CLCCHCL (ICD-10-PCS; 2016-12-09 10:45)

== ENCOUNTER 2017-01-26 18:23 | Inpatient (IN) ==
[2017-01-26] MEDS ORDERED: ONDANSETRON 4 MG/2 ML VIAL IV STA (19:12)
[2017-01-26] MEDS ORDERED: methylPREDNISolone SOD SUC 125 MG/2 ML VIAL IV STA (19:12)
[2017-01-26] MEDS ORDERED: FUROSEMIDE 100 MG/10 ML VIAL IV STA (19:12)
--- NOTE | 2017-01-26 19:16 | Emergency Department Note ---
Aaron Moralez Brittany, am scribing for, and in the presence of, Anthony Nunez MD 19:09. Mayra Moralez Charles R, MD, personally performed the services described in this documentation, ascribed by Dimple Walker in my presence, and it is both accurate and complete 916 . Arrival - Arrival Chief Complaint: Shortness of Breath Stated Complaint: Trouble breathing, numbness right hand, [facility] ED Nursing Triage Note: c/o sob and right hand numbness that started yesterday. hx: COPD Mode of Arrival: Ambulatory Limitations: No Limitations Source: Patient, RN Notes Reviewed Time Seen by Provider: 01/26/17 18:45 - History of Present Illness HPI Narrative: Patient is a 51 y/o black male presenting to the ED with c/o shortness of breath with an onset of yesterday. Patient reports that as of current he is not short of breath. He reports that he came yesterday and was triaged but left a few hours later without being seen. ER nurse in room reports that upon patient' s arrival in room he had an oxygen saturation of 86% on room air, sats are now 92% on oxygen at 2L via nasal cannula. Patient states the last few times in the past he has presented with shortness of breath he was diagnosed with PNA and CHF. Patient denies having any associated chest pain with this. Patient appears to have increased weakness as well. Patient does not utilize at home oxygen. He does report some right hand numbness, but states this has been intermittent for the past 9 years which is chronic and consistent with Peripheral Neuropathy. Patient currently is on Lasix. He admits to everyday use of smoking tobacco and smokes about a pack/day. Patient lives alone. No other complaint. Patient has a past medical history significant for CHF, CAD, HTN, [place], PVD, CVA, NIDDM, COPD, and Left Carotid Endarterectomy. Onset (ago): day(s) (1) Consistency: now resolved Severity: moderate Severity scale (1-10): 6 Allergies/Adverse Reactions: Allergies Allergy/AdvReac Type Severity Reaction Status Date / Time No Known Allergies Allergy Verified 01/10/17 16:39 Home Medications: Home Medications Medication Instructions Recorded Confirmed Type Albuterol Sulfate [Ventolin HFA] 2 puff INH Q4H PRN #1 01/13/17 01/26/17 Rx Amlodipine Besylate 5 mg PO QAM #30 01/13/17 01/26/17 Rx Carvedilol 25 mg PO QAM #30 01/13/17 01/26/17 Rx Digoxin 250 mcg PO QAM #30 01/13/17 01/26/17 Rx Furosemide Tab [Lasix Tab] 40 mg PO DAILY #30 tablet 01/13/17 01/26/17 Rx Gabapentin Cap/Tab [Neurontin 600 mg PO BEDTIME #30 01/13/17 01/26/17 Rx Cap/Tab] Insulin Glargine,Hum.rec.anlog 15 units SUBCUT BEDTIME 30 Days 01/13/17 Rx [Lantus SoloStar] Isosorbide Mononitrate [Imdur] 30 mg PO DAILY #30 tablet 01/13/17 01/26/17 Rx Levothyroxine Tab [Synthroid Tab] 50 mcg PO 0600 #30 01/13/17 01/26/17 Rx Lisinopril 10 mg PO QAM #30 01/13/17 01/26/17 Rx Nitroglycerin Sl Tab [Nitrostat] 0.4 mg SL Q5M PRN #30 01/13/17 01/26/17 Rx OLANZapine TAB [ZyPREXA Tab] 5 mg PO BEDTIME #30 tablet 01/13/17 01/26/17 Rx OXcarbazepine [Trileptal] 300 mg PO BID 30 Days 01/13/17 01/26/17 Rx Rosuvastatin [Crestor] 20 mg PO BEDTIME 30 Days 01/13/17 01/26/17 Rx Tiotropium [place] [Spiriva 2 puffs INH BID #1 01/13/17 01/26/17 Rx Respimat] Warfarin Sodium 4 mg PO 2000 #30 01/13/17 01/26/17 Rx hydrALAZINE TAB [Apresoline Tab] 50 mg PO BID #60 tablet 01/13/17 01/26/17 Rx Aspirin [Ecotrin] 81 mg PO DAILY 01/26/17 01/26/17 History glipiZIDE [Glipizide] 10 mg PO BID 01/26/17 01/26/17 History Review of System - Review of System 12 point system: reviewed and no additional remarkable complaints except as stated - Review of System Respiratory: Present: respiratory distress Cardiovascular: Absent: chest pain Neurological: Present: as per HPI, numbness Medical,Surgical,& Family Hx - Medical History Cardio: History of: Cerebrovascular Disease, CHF, CAD, Hypertension, [place], PVD No history of: Valvular Heart Disease Psychological: History of: Anxiety Disorders, Schizophrenia, Psychiatric Problems Neurology: History of: Cerebrovascular Accident No history of: Dementia, Seizures, TIA, Vertigo Endocrine: History of: Diabetes Mellitus (NIDDM), Dyslipidemia No history of: Thyroid Disorder Rheumatology: No history of;: Gout Respiratory: History of: Asthma (childhood), COPD, Pneumonia Renal: History of: Renal Problems Gastrointestinal: History of: GERD No history of: Gastrointestinal Bleed, Hepatitis Musculoskeletal: No history of: Degenerative Disk Disease Hematology: No history of: Anemia Other: No history of: Cancer - Surgical History Cardiac Surgeries: Sugical HX of: Cardiac Catheterization, Carotid Endarterectomy (left) Patient Denies: Cardiac Surgery HEENT Surgeries: Surgical HX of: Carotid Endarterectomy (left) Abdominal Surgeries: Surgical HX of: Colonoscopy, EGD - Family History Family History: Reports;: Family Diabetes, Family Hypertension - Social History Smoking Status: Current every day smoker Frequency of Alcohol Use: None Type of Drug Use: None Exam Vital Signs: Vital Signs Temperature 98.2 F 01/26/17 19:02 Pulse Rate 86 01/26/17 19:23 Respiratory Rate 18 01/26/17 19:23 Blood Pressure 123/65 01/26/17 19:02 O2 Sat by Pulse Oximetry 96 01/26/17 19:23 - General General appearance: alert, in no apparent distress - Head Head exam: Present: atraumatic, normocephalic, normal inspection - Eye Eye exam: Present: normal appearance, PERRL, EOMI - ENT ENT exam: Present: mucous membranes moist, TM's normal bilaterally. Absent: normal oropharynx (edentulous) - Neck Neck exam: Present: normal inspection, full ROM, trachea midline - Chest Chest inspection: Present: normal inspection, symmetric chest wall rise - Respiratory Respiratory exam: Present: rales (bilateral rales), rhonchi, wheezes. Absent: normal lung sounds bilaterally - Cardiovascular Cardiovascular exam: Present: regular rate, normal rhythm, normal heart sounds. Absent: murmur, rubs, gallop - Abdominal Exam Abdominal exam: Present: soft, normal bowel sounds. Absent: distention, tenderness - Extremities Exam Extremities exam: Present: full ROM, pedal edema (+2) - Back Exam Back exam: Present: normal inspection - Neurological Exam Neurological exam: Present: alert, oriented X3, CN II-XII intact. Absent: motor sensory deficit - Psychiatric Psychiatric exam: Present: normal affect - Skin Skin exam: Present: warm, dry Course - Consultations Consultation #1: Hospitalist will admit Time: 21:33 Results - Labs CBC & BMP: 01/26/17 18:55 01/26/17 18:55 Lab Results: I have reviewed the patients labs Labs: Laboratory Tests 01/26/17 18:55 WBC 6.4 RBC 5.16 Hgb 16.0 Hct 49.4 MCV 95.7 MCH 31 MCHC 32.4 RDW 13.2 Plt Count 206 MPV 10.2 Neut % (Auto) 52.6 Lymph % (Auto) 32.6 [place] % (Auto) 7.4 Eos % (Auto) 6.9 Baso % (Auto) 0.2 Neut # (Auto) 3.4 Lymph # (Auto) 2.1 [place] # (Auto) 0.5 Eos # (Auto) 0.4 Baso # (Auto) 0.0 Immature Gran % 0.3 Nucleated RBC % 0.0 Immature Gran # 0.02 Nucleated RBCs # 0.00 Laboratory Tests 01/26/17 01/26/17 18:55 18:55 Sodium 145 Potassium 4.3 Chloride 106 Carbon Dioxide 30 Anion Gap 13.3 BUN 43 H Creatinine 2.60 H GFR Calculation 36 BUN/Creatinine Ratio 16.00 Glucose 209 H Calculated Osmolality 304.7 H Calcium 7.9 L Magnesium 2.0 Total Bilirubin < 0.39 AST 33 ALT 35 Alkaline Phosphatase 122 H Troponin I 0.101 H B-Natriuretic Peptide 759 H Total Protein 5.8 L Albumin 2.2 L Globulin 3.6 H Albumin/Globulin Ratio 0.6 L Laboratory Tests 01/26/17 20:40 Urine Color Straw Urine Appearance Clear Urine pH 5.0 Ur Specific [place] 1.010 Urine Protein >=500 Urine Glucose (UA) 50 Urine Ketones Negative Urine Blood Negative Urine Nitrate Negative Urine Bilirubin Negative Urine Urobilinogen < 2.0 H Urine Leukocytes Negative Urine RBC 4 Urine WBC 1 Urine Mucus Occasional - Diagnostic Findings Procedure: Chest x-ray: report reviewed by me (No acute cardiopulmonary process is identified.) Disposition Clinical Impression: Acute exacerbation of chronic obstructive airways disease, Tobacco abuse, CKD ( chronic kidney disease), Renal insufficiency, Elevated troponin Case discussed with: patient Disposition: Still a Patient Condition: Stable Time of Disposition: 21:33
[2017-01-26] MEDS ORDERED: ONDANSETRON 4 MG/2 ML VIAL ONE (19:18)
[2017-01-26] MEDS ORDERED: FUROSEMIDE 20 MG/2 ML VIAL ONE (19:18)
[2017-01-26] MEDS ORDERED: FUROSEMIDE 40 MG/4 ML VIAL ONE (19:18)
[2017-01-26] MEDS ORDERED: methylPREDNISolone SOD SUC 125 MG/2 ML VIAL ONE (19:18)
[2017-01-26 19:24] LABS: Basophils % 0.2 % (0.0-0.8); Eosinophils # 0.4 10*3/uL (0.0-0.87); Eosinophils % 6.9 % (0.00-10.9); Hematocrit 49.4 VOL% (42.0-52.0); Immature Granulocytes % 0.3 %; Immature Granulocytes Absolute 0.02 #; Lymphocytes # 2.1 10*3/uL (1.4-4.0); Lymphocytes % 32.6 % (21.2-54.2); Mean Corpuscular HGB Conc 32.4 GM/DL (32-36); Mean Corpuscular Hemoglobin 31 PG (27-34); Mean Corpuscular Volume 95.7 FL (87-102); Mean Platelet Volume 10.2 FL (9.6-12.0); Monocytes # 0.5 10*3/uL (0.11-0.8); Monocytes % 7.4 % (1.7-12.7); Neutrophils # 3.4 10*3/uL (1.4-7.4); Neutrophils % 52.6 % (38.7-73.9); Platelet Count 206 T/CUMM (130-400); Red Blood Count 5.16 MC/CUMM (3.8-5.5); Red Cell Distribution Width 13.2 % (9.3-17.3); White Blood Count 6.4 T/CUMM (4-12)
[2017-01-26] MEDS ORDERED: ALBUTEROL 2.5 MG/3 ML NEB RESP TX SCH (19:30)
--- NOTE | 2017-01-26 19:31 | XRay Report ---
XR chest 1V portable Indication: SOB Comparison: Chest x-ray dated January 10, 2017 Technique: Frontal views of the chest Findings: Cardiomediastinal silhouette is stable in configuration. Chronic change of the lungs without focal consolidation, pleural effusion, or pneumothorax. Osseous and surrounding soft tissue structures appear grossly unchanged. IMPRESSION: No acute cardiopulmonary process demonstrated. PROCEDURE INTERPRETED AT [facility] DEPARTMENT OF RADIOLOGY Final Report Signed by: Dr Ronaldo Chan
[2017-01-26 19:36] LABS: Alanine Aminotransferase 35 U/L (16-61); Albumin 2.2 G/DL (3.4-5.0); Alkaline Phosphatase 122 U/L (45-117); Aspartate Amino Transferase 33 U/L (0-37); Bilirubin,Total < 0.39 MG/DL (0.2-1.0); Blood Urea Nitrogen 43 MG/DL (7-18); Calcium 7.9 MG/DL (8.5-10.1); Glucose 209 MG/DL (74-106); Osmolality,Calculated 304.7 MOS/KG (273-304); Potassium 4.3 MMOL/L (3.5-5.1); Sodium 145 MMOL/L (136-145); Total Protein 5.8 G/DL (6.4-8.3)
[2017-01-26 19:37] LABS: Troponin I Only 0.101 NG/ML (0.00-0.045)
[2017-01-26 20:58] LABS: Apearance,Urine CLEAR (Clear); Bilirubin,Urine Negative (Negative); Blood, Urine Negative (Negative); Glucose,Urine (UA) 50 mg/dL (Negative); Ketones,Urine Negative (Negative); Mucus,Urine Occasional /LPF (Occasional); Nitrite,Urine Negative (Negative); Protein,Urine >=500 MG/DL; RBC,Urine 4 /HPF (0-4); Urine Color Straw (Yellow); Urine Urobilinogen < 2.0 EU/DL (0.2-1.0); WBC,Urine 1 /HPF (0-6)
[2017-01-26] MEDS ORDERED: GLUCAGON 1 MG VIAL IM PRN (21:32)
[2017-01-26] MEDS ORDERED: MORPHINE 2 MG/1 ML SYRINGE IV PRN (21:32)
[2017-01-26] MEDS ORDERED: ZALEPLON 5 MG CAPSULE PO PRN (21:32)
[2017-01-26] MEDS ORDERED: DOCUSATE SODIUM 100 MG CAPSULE PO PRN (21:32)
[2017-01-26] MEDS ORDERED: ACETAMINOPHEN 325 MG TABLET PO PRN (21:32)
[2017-01-26] MEDS ORDERED: DEXTROSE 50% 25 GM/50 ML VIAL IV PRN (21:32)
[2017-01-26] MEDS ORDERED: ALBUTEROL/IPRATROPIUM 3 ML NEB RESP TX PRN (21:34)
[2017-01-26] MEDS ORDERED: ALBUTEROL 2.5 MG/3 ML NEB RESP TX PRN (21:34)
[2017-01-26] MEDS ORDERED: NITROGLYCERIN SL 0.4 MG TABLET SL PRN (21:36)
--- NOTE | 2017-01-26 21:58 | Hospitalist History & Physical ---
Assessment and Plan (1) Acute exacerbation of chronic obstructive airways disease Status: Acute Assessment and plan: Admitted to hospitalist service. Start antibiotics bronchodilators and corticosteroids. Continue home medications. Smoking cessation counseling. Current Visit: Yes (2) Acute kidney injury superimposed on chronic kidney disease Status: Acute Assessment and plan: Baseline creatinine approximately 2.0. Current Visit: No (3) Elevated troponin Status: Acute Assessment and plan: serial troponin ordered Current Visit: Yes (4) Tobacco abuse Status: Chronic Current Visit: Yes (5) Hypertension Status: Chronic Assessment and plan: continue home meds Current Visit: No Qualifiers: Hypertension type: essential hypertension Qualified Code(s): I10 - Essential (primary) hypertension (6) Dyslipidemia Status: Chronic Current Visit: No (7) CAD (coronary artery disease) Status: Chronic Current Visit: No History of Present Illness Chief complaint: Shortness of breath History of present illness: Mr. Godwin is a 51 year old male presenting to the ED with c/o shortness of breath that began yesterday. He reports that he came yesterday and was triaged but left a few hours later without being seen. ER nurse in room reports that upon patient's arrival in room he had an oxygen saturation of 86% on room air, sats are now 92% on oxygen at 2L via nasal cannula. Patient states the last few times in the past he has presented with shortness of breath he was diagnosed with PNA and CHF. Patient denies having any associated chest pain with this. Patient appears to have increased weakness as well. He does not utilize at home oxygen. Symptoms actually started 2 or more weeks ago and have progressively worsened. He has a cough but no sputum production. He reports compliance with his medications. He lives in a intermediate in [place]. He admits to everyday use of smoking tobacco and smokes about a pack/day. No other complaint. Patient has a past medical history significant for CHF, CAD, HTN, AZ, PVD, CVA, NIDDM, COPD, and Left Carotid Endarterectomy. Home Medications Medication Instructions Recorded Confirmed Type Albuterol Sulfate [Ventolin HFA] 2 puff INH Q4H PRN #1 01/13/17 01/26/17 Rx Amlodipine Besylate 5 mg PO QAM #30 01/13/17 01/26/17 Rx Carvedilol 25 mg PO QAM #30 01/13/17 01/26/17 Rx Digoxin 250 mcg PO QAM #30 01/13/17 01/26/17 Rx Furosemide Tab [Lasix Tab] 40 mg PO DAILY #30 tablet 01/13/17 01/26/17 Rx Gabapentin Cap/Tab [Neurontin 600 mg PO BEDTIME #30 01/13/17 01/26/17 Rx Cap/Tab] Insulin Glargine,Hum.rec.anlog 15 units SUBCUT BEDTIME 30 Days 01/13/17 Rx [Lantus SoloStar] Isosorbide Mononitrate [Imdur] 30 mg PO DAILY #30 tablet 01/13/17 01/26/17 Rx Levothyroxine Tab [Synthroid Tab] 50 mcg PO 0600 #30 01/13/17 01/26/17 Rx Lisinopril 10 mg PO QAM #30 01/13/17 01/26/17 Rx Nitroglycerin Sl Tab [Nitrostat] 0.4 mg SL Q5M PRN #30 01/13/17 01/26/17 Rx OLANZapine TAB [ZyPREXA Tab] 5 mg PO BEDTIME #30 tablet 01/13/17 01/26/17 Rx OXcarbazepine [Trileptal] 300 mg PO BID 30 Days 01/13/17 01/26/17 Rx Rosuvastatin [Crestor] 20 mg PO BEDTIME 30 Days 01/13/17 01/26/17 Rx Tiotropium [place] [Spiriva 2 puffs INH BID #1 01/13/17 01/26/17 Rx Respimat] Warfarin Sodium 4 mg PO 2000 #30 01/13/17 01/26/17 Rx hydrALAZINE TAB [Apresoline Tab] 50 mg PO BID #60 tablet 01/13/17 01/26/17 Rx Aspirin [Ecotrin] 81 mg PO DAILY 01/26/17 01/26/17 History glipiZIDE [Glipizide] 10 mg PO BID 01/26/17 01/26/17 History Allergies Allergy/AdvReac Type Severity Reaction Status Date / Time No Known Allergies Allergy Verified 01/10/17 16:39 Medical,Surgical,& Family Hx - Medical History Cardio: History of: Cerebrovascular Disease, CHF, CAD, Hypertension, AZ, PVD No history of: Valvular Heart Disease Psychological: History of: Anxiety Disorders, Schizophrenia, Psychiatric Problems Neurology: History of: Cerebrovascular Accident No history of: Dementia, Seizures, TIA, Vertigo Endocrine: History of: Diabetes Mellitus (NIDDM), Dyslipidemia No history of: Thyroid Disorder Rheumatology: No history of;: Gout Respiratory: History of: Asthma (childhood), COPD, Pneumonia Renal: History of: Renal Problems Gastrointestinal: History of: GERD No history of: Gastrointestinal Bleed, Hepatitis Musculoskeletal: No history of: Degenerative Disk Disease Hematology: No history of: Anemia Other: No history of: Cancer - Surgical History Cardiac Surgeries: Sugical HX of: Cardiac Catheterization, Carotid Endarterectomy (left) Patient Denies: Cardiac Surgery HEENT Surgeries: Surgical HX of: Carotid Endarterectomy (left) Abdominal Surgeries: Surgical HX of: Colonoscopy, EGD - Family History Family History: Reports;: Family Diabetes, Family Hypertension - Social History Smoking Status: Current every day smoker Frequency of Alcohol Use: None Type of Drug Use: None 12 point system: reviewed and no additional remarkable complaints except as stated - Constitutional Constitutional: Present: as per HPI - Cardiovascular Cardiovascular: Present: dyspnea, edema - Respiratory Respiratory: Present: cough, dyspnea, dyspnea on exertion, wheezing Exam - Constitutional Vitals: Period Temp Pulse Resp BP Sys/Castillo Pulse Ox Last 24 Hr 98.2 F-98.2 F 82-86 18-18 123-123/65-65 90-96 Exam: - General General appearance: alert, in no apparent distress - Head Head exam: Present: atraumatic, normocephalic, normal inspection - Eye Eye exam: Present: normal appearance, PERRL, EOMI - ENT ENT exam: Present: mucous membranes moist, TM's normal bilaterally. Absent: normal oropharynx (edentulous) - Neck Neck exam: Present: normal inspection, full ROM, trachea midline - Chest Chest inspection: Present: normal inspection, symmetric chest wall rise - Respiratory Respiratory exam: Present: rales bilateral with wheezes. Decreased breath sounds bilaterally. - Cardiovascular Cardiovascular exam: Present: regular rate, normal rhythm, normal heart sounds. Absent: murmur, rubs, gallop - Abdominal Exam Abdominal exam: Present: soft, normal bowel sounds. Absent: distention, tenderness - Extremities Exam Extremities exam: Present: full ROM, pedal edema (+2) - Back Exam Back exam: Present: normal inspection - Neurological Exam Neurological exam: Present: alert, oriented X3, CN II-XII intact. Absent: motor sensory deficit - Psychiatric Psychiatric exam: Present: normal affect - Skin Skin exam: Present: warm, dry Results - Labs CBC & BMP: 01/26/17 18:55 01/26/17 18:55 Lab Results: I have reviewed the past 24 hour labs - Diagnostic Findings Procedure: Chest x-ray: image reviewed by me, report reviewed by me Quality Measures - VTE Contraindication to Pharmacological VTE Prophylaxis: Already on Theraputic Agent , No Prophylaxis Needed
[2017-01-26] MEDS ORDERED: cefTRIAXone 1,000 MG in SODIUM CHLORIDE 0.9% 100 ML IV SCH (22:00)
[2017-01-26] MEDS ORDERED: OLANZapine 5 MG TABLET PO SCH (22:00)
[2017-01-26] MEDS ORDERED: INSULIN GLARGINE 100 UNIT/ML SUBCUT SCH (22:00)
[2017-01-26 22:41] LABS: INR 1.9
[2017-01-26 22:44] LABS: PT Patient Result 21.5 SECS
[2017-01-27] MEDS ORDERED: AZITHROMYCIN INJ 500 MG in SODIUM CHLORIDE 0.9% 250 ML IV SCH
[2017-01-27 00:10] LABS: Troponin I Only 0.104 NG/ML (0.00-0.045)
[2017-01-27] MEDS: methylPREDNISolone SOD SUC 40 MG/1 ML VIAL IV SCH ×2 (00:52→06:10)
[2017-01-27] MEDS: ALBUTEROL/IPRATROPIUM 3 ML NEB RESP TX SCH ×2 (01:29→07:34)
[2017-01-27] MEDS ORDERED: LEVOTHYROXINE 50 MCG TABLET PO SCH (06:00)
[2017-01-27 06:38] LABS: Calcium 7.4 MG/DL (8.5-10.1); Magnesium 1.9 MG/DL (1.8-2.4); Osmolality,Calculated 306.3 MOS/KG (273-304)
[2017-01-27 06:46] LABS: Troponin I Only 0.065 NG/ML (0.00-0.045)
[2017-01-27] MEDS ORDERED: IPRATROPIUM 500 MCG/2.5 ML NEB RESP TX SCH (07:00)
[2017-01-27] MEDS ORDERED: INSULIN LISPRO 100 UNIT/ML SUBCUT SCH (07:30)
[2017-01-27] MEDS ORDERED: LISINOPRIL 10 MG TABLET PO SCH (09:00)
[2017-01-27] MEDS ORDERED: PANTOPRAZOLE 40 MG TABLET PO SCH (09:00)
[2017-01-27] MEDS ORDERED: ISOSORBIDE MONONITRATE 30 MG TABLET PO SCH (09:00)
[2017-01-27] MEDS ORDERED: DIGOXIN 0.25 MG TABLET PO SCH (09:00)
[2017-01-27] MEDS ORDERED: glipiZIDE 10 MG TABLET PO SCH (09:00)
[2017-01-27] MEDS ORDERED: CARVEDILOL 25 MG TABLET PO SCH (09:00)
[2017-01-27] MEDS ORDERED: ASPIRIN EC 81 MG TABLET PO SCH (09:00)
[2017-01-27] MEDS ORDERED: FUROSEMIDE 40 MG TABLET PO SCH (09:00)
[2017-01-27] MEDS ORDERED: OXcarbazepine 300 MG TABLET PO SCH (09:00)
[2017-01-27] MEDS ORDERED: amLODIPine 5 MG TABLET PO SCH (09:00)
--- NOTE | 2017-01-27 09:23 | Discharge Summary ---
Hospital Course - Hospital Course Hospital Course: The patient was admitted to the hospital with moderate shortness of breath on account of COPD exacerbation. The patient was feeling better the following day and his dyspnea has been relieved. The patient was able to clear mucus from his airways and feels less short of breath and has minimal cough this morning. The patient was given smoking cessation advice. The patient will be discharged home with a short course of prednisone and antibiotic. The patient will follow up with his usual primary care physician. On the date of discharge, chest is clear with minimal air trapping and no wheezing. - Time spent with patient Time with patient DS: Greater than 30 minutes Diagnosis - Discharge Diagnosis (1) Ischemic dilated cardiomyopathy Status: Chronic (2) Diabetes mellitus Status: Chronic (3) Acute exacerbation of chronic obstructive airways disease Status: Resolved Discharge Plan - Discharge Data Disposition: Disch To Home/Self Care Condition at Discharge: Stable Discharge Diet: diabetic diet Activity: resume usual activities as tolerated, other (No smoking) - Discharge Medications New Azithromycin Tab [Zithromax Tab] 250 mg PO DAILY #6 tablet predniSONE TAB [PredniSONE] 10 mg PO DAILY #7 tablet Continue Furosemide Tab [Lasix Tab] 40 mg PO DAILY #30 tablet OLANZapine TAB [ZyPREXA Tab] 5 mg PO BEDTIME #30 tablet OXcarbazepine [Trileptal] 300 mg PO BID 30 Days Albuterol Sulfate [Ventolin HFA] 2 puff INH Q4H PRN #1 PRN Reason: Shortness Of Breath/Wheezing Amlodipine Besylate 5 mg PO QAM #30 Digoxin 250 mcg PO QAM #30 Gabapentin Cap/Tab [Neurontin Cap/Tab] 600 mg PO BEDTIME #30 Insulin Glargine,Hum.rec.anlog [Lantus SoloStar] 15 units SUBCUT BEDTIME 30 Days Isosorbide Mononitrate [Imdur] 30 mg PO DAILY #30 tablet Lisinopril 10 mg PO QAM #30 Nitroglycerin Sl Tab [Nitrostat] 0.4 mg SL Q5M PRN #30 PRN Reason: Chest Pain Tiotropium [place] [Spiriva Respimat] 2 puffs INH BID #1 Warfarin Sodium 4 mg PO 2000 #30 hydrALAZINE TAB [Apresoline Tab] 50 mg PO BID #60 tablet glipiZIDE [Glipizide] 10 mg PO BID Aspirin [Ecotrin] 81 mg PO DAILY Carvedilol 25 mg PO QAM #30 Levothyroxine Tab [Synthroid Tab] 50 mcg PO 0600 #30 Rosuvastatin [Crestor] 20 mg PO BEDTIME 30 Days - Follow Up or Referral Follow Up: [facility] [Other] - 2 Weeks - Forms/Instructions Exam - Constitutional Vitals: Period Temp Pulse Resp BP Sys/Castillo Pulse Ox Last 24 Hr 97.7 F-97.9 F 74-86 14-20 114-137/74-87 89-99 Discharge Results Procedures and tests throughout hospitalization: Pending Orders 01/26/17 21:35 Sputum Culture and Gram Stain Routine 01/27/17 11:15 Troponin,CKMB & Ck Total Q6H Labs on day of discharge: Labs from last 24 hours 01/27/17 01/27/17 01/27/17 07:13 05:40 05:40 INR PT Patient/Control Mix Sodium 141 Potassium 5.0 Chloride 104 Carbon Dioxide 26 Anion Gap 16.0 H BUN 46 H Creatinine 2.70 H GFR Calculation 34 BUN/Creatinine Ratio 17.00 Glucose 358 H POC Glucose 289 H Calculated Osmolality 306.3 H Calcium 7.4 L Magnesium 1.9 Total Creatine Kinase 198 CK-MB (CK-2) 3.9 H Troponin I 0.065 H D Digoxin 01/27/17 01/26/17 01/26/17 03:44 Unknown Unknown INR 1.9 PT Patient/Control Mix 21.5 D Sodium Potassium Chloride Carbon Dioxide Anion Gap BUN Creatinine GFR Calculation BUN/Creatinine Ratio Glucose POC Glucose 337 H Calculated Osmolality Calcium Magnesium Total Creatine Kinase CK-MB (CK-2) Troponin I Digoxin 1.70 01/26/17 01/26/17 23:20 22:58 INR PT Patient/Control Mix Sodium Potassium Chloride Carbon Dioxide Anion Gap BUN Creatinine GFR Calculation BUN/Creatinine Ratio Glucose POC Glucose 190 H Calculated Osmolality Calcium Magnesium Total Creatine Kinase 239 CK-MB (CK-2) 4.3 H Troponin I 0.104 H Digoxin DS: Provider Date of admission: 01/26/17 21:32 Primary care physician: . No PCP Attending physician on admission: Darian Haji MD Consults: 01/26/17 21:40 Consult to Pharmacy [CONS] Routine Reason for Pharmacy Consult: Adjust Meds Renal Funct Discharging clinician: Darian Haji MD
[2017-01-27 11:36] VITALS: BP 132/78
[2017-01-27] MEDS ORDERED: WARFARIN 4 MG TABLET PO SCH (20:00)
[2017-01-27] MEDS ORDERED: ROSUVASTATIN 20 MG TABLET PO SCH (21:00)
[2017-01-27] MEDS ORDERED: GABAPENTIN 300 MG CAPSULE PO SCH (21:00)
== END 2017-01-27 10:45 | disposition home or self-care (01) | DRG 191 ==
LOC: N.ED 18:23 → N.EDINP 21:32 → N.5E 22:39
PROVIDERS: ADMIT Internal Medicine; ATTEND Internal Medicine